=== PATIENT | male | born 1945 | race Caucasian/White ===

== ENCOUNTER → 2016-09-24 | Outpatient (CLI) | payer OTHER ==
[~2016-09-24] MED LIST: ACET-1256 PO; ALPR-411 PO; AMT25 PO; ATOR10TA88 PO; BIMA0.01 OPB; BISA10SU38 PR; CLIN300C10 PO; GLC/500 PO; IBUP1CAP9 PO; LEVO75TA PO; NIFE90TA PO; OXYC-57 PO; POLY335025 PO; POTA10CA28 PO; PRLSR20 PO
[2016-09-24 12:27] LABS: THYROID STIMULATING HORMONE 0.59 uIu/ml (0.300-4.500)
== END | disposition home or self-care (01) ==
LOC: C.LAB1850 11:11
PROVIDERS: ATTEND Internal Medicine Endocrinology, Diabetes & Metabolism
DX: E06.3 Autoimmune thyroiditis (principal)

== ENCOUNTER 2017-11-08 18:26 | Emergency (ER) | payer OTHER ==
[~2017-11-08] VITALS: Ht 180.3 cm; Wt 75.0 kg
[~2017-11-08 18:26] MED LIST changes: +ATOR10TA82 PO; -ATOR10TA88 PO; -OXYC-57 PO
[2017-11-08 18:28] VITALS: BP 188/84; PULSE 101; TEMP 36.3; O2SAT 99; Ht 180.3 cm; Wt 75.0 kg
--- NOTE | 2017-11-08 19:35 | EMERGENCY ROOM VISIT NOTE ---
ED Visit Note First contact with patient: 18:50 I did evaluate and examine this patient myself. I did guide management for the patient. I agree with the PA's assessment as discussed. Please see the PAs dictation for further details. The patient has been on 2 courses of 10 days of doxycycline. He is presenting because he feels his eustachian tubes are blocked and he has sinus drainage and wished to be placed on doxycycline. He had asked his primary care physician who did not feel it was indicated. He does have an appointment in 3 days to see his ENT doctor. I did recommend that we hold off on antibiotics at this time as there is no signs of bacterial infection on examination. He was advised to take [id number] decongestants to help with his symptoms in the meantime.
--- NOTE | 2017-11-08 19:37 | EMERGENCY ROOM VISIT NOTE ---
ED Visit Note First contact with patient: 18:50 CHIEF COMPLAINT: Ears blocked shut x one week HPI: Patient is a 72-year-old male who presents the emergency department requesting a doxycycline prescription for a suspected sinus infection. The patient has chronic sinus issues and has undergone multiple ENT surgeries. He states that he gets frequent sinus infections. He finished a course of doxycycline on 10/29. He reports that he had been seen by his ENT surgeon 2 days prior to that and had his ears cleaned, and was told that his "sinuses were clear." 2 days after finishing the antibiotic, patient states that he had a harsh coughing fits, and his ears have been clogged since. He notes pressure and muffled hearing in his ears. He notes some soreness down into the lymph nodes in his neck. He states that he gets hoarse. He has not had any fevers. He has been taking Mucinex. He states that nasal steroids do not work for him. He was on oral steroids about 4 months ago. He states that he had a CT scan from his ENT surgeon 6 months ago which showed his sinuses were clear. He tried calling his primary care provider who did not want to place him on an additional course of antibiotics, and there was a scheduling issue with his ENT surgeon, he is now supposed to see him in a few days. REVIEW OF SYSTEMS: Review of systems as per HPI. All other systems reviewed were negative. 10 systems reviewed. PMH: Electronic medical records are reviewed and summarized as above/below. See Problem List. SOCIAL HISTORY: Patient lives at home by himself. Non-smoker. He is retired. PHYSICAL EXAM: Vital Signs: Reviewed Nurse's notes. MENTAL STATUS: Alert and cooperative. Nontoxic appearing. HEAD: Atraumatic, without temporal or scalp tenderness. EYES: PERRL, EOMI, no discharge or injection. EARS: Tympanic membranes intact, mildly retracted, with clear fluid and some air -fluid levels inferiorly. External canals clear. There is no pain, swelling or erythema over the mastoid. NOSE: Nares patent, turbinates edematous and boggy with clear rhinorrhea. MOUTH: Mucous membranes moist, no lesions, tongue and gums appear normal. THROAT: No pharyngeal injection, exudates, or tonsillar hypertrophy. Airway is patent. NECK: No carotid bruits auscultated. Supple, nontender, no lymphadenopathy. HEART: Regular rate and rhythm without murmurs, ectopy, gallops, or rubs. LUNGS: Clear to auscultation and breath sounds equal, no wheezes, rales, or rhonchi. SKIN: Normal. NEUROLOGICAL: Sensory and motor functions grossly intact. Normal gait. ED course: The patient was seen and assessed as above. He recently completed a course of doxycycline for a sinus infection. He has evidence for serous otitis media with effusion, but no evidence for acute otitis media. I do not suspect mastoiditis. I do not feel that a course of doxycycline is indicated as there does not appear to be a bacterial infectious cause. Patient certainly has an eustachian tube dysfunction, and is not presently taking a decongestant which was advised. He can also try a nasal steroid spray for decreased inflammation. Patient was seen and assessed by attending physician who concurs. The patient will follow up with ENT as he has scheduled. Medication reconciliation: I attest that I have personally reviewed the patient' s current medication list. Blood pressure screening: Patient was found to have a slightly elevated blood pressure due to circumstances. I do not believe that the patient requires hypertension monitoring. 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 (4) Benign essential hypertension Status: Chronic (5) Chronic sinusitis Status: Chronic (6) Diplopia Status: Resolved (7) Diplopia Status: Resolved (8) Diplopia Status: Resolved (9) Dyslipidemia Status: Chronic (10) Hypokalemia Status: Resolved (11) Left bundle branch block Status: Resolved (12) Parotid tumor Status: Resolved (13) Rosacea Status: Chronic Surgical Problems: (1) Deviated nasal septum Status: Chronic (2) History of sinus surgery Status: Resolved (3) Replacement of total knee joint Status: Resolved Current/Historical Medications Scheduled Alprazolam (Xanax), 0.5 MG PO QAM Amitriptyline Hcl (Elavil *), 25 MG PO HS Atorvastatin (Lipitor), 10 MG PO AFTERNOON Bimatoprost (Lumigan), 1 FROILAN OPB HS Clindamycin Hcl (Clindamycin Hcl), 300 MG PO QID Levothyroxine Sodium (Synthroid), 75 MCG PO QAM Metformin Hcl (Glucophage), 500 MG PO BID Nifedipine (Procardia Xl), 90 MG PO QAM Omeprazole (Prilosec), 20 MG PO QAM Potassium Chloride (Micro-K Ext Rel), 10 MEQ PO BID Scheduled PRN Acetaminophen (Tylenol), 500 MG PO BID PRN for Pain Bisacodyl (Dulcolax), 1 SUPP MN QAM PRN for Constipation Ibuprofen (Ibuprofen), 1 TAB PO QAM PRN for Pain Polyethylene Glycol 3350 (Miralax), 17 GM PO Q2D PRN for CONSTIPATION Allergies Coded Allergies: Dust (Verified Allergy, Intermediate, NASAL BURNING, LEFT EYE IRRITATION, 06/18/16) Molds and Smuts (Verified Allergy, Intermediate, NASAL BURNING, LEFT EYE IRRITATION, 06/18/16) Penicillins (Verified Allergy, Intermediate, HIVES ON BODY, 06/18/16) Levofloxacin (Unverified Allergy, Mild, UNKNOWN, 06/18/16) Vancomycin (Verified Allergy, Unknown, UNKNOWN, 06/04/16) Vital Signs Date Time Temp Pulse Resp B/P (MAP) Pulse Ox O2 Delivery O2 Flow Rate FiO2 11/08/17 18:28 36.3 101 18 188/84 99 Departure Information Impression Primary Impression: Serous otitis media Additional Impression: Eustachian tube dysfunction Referrals Jean Marie Inman D.OZully (PCP) Patient Instructions [facility] Additional Instructions Acetaminophen(Tylenol) may be used for fever or pain. Use 1000mg every six hours as needed. Avoid using more than 3000mg in a 24 hour period. (AND/OR) Ibuprofen(Motrin, Advil) may be used for fever or pain. Use 600mg every six hours as needed. Take with food. Avoid using more than 2400mg in a 24 hour period. Do not use 2400mg per day for more than three consecutive days without physician direction. Prolonged inappropriate use can lead to stomach upset or ulcers. Afrin nasal spray: 2-3 sprays to each nostril twice daily as needed for congestion. Do not use for more than 3-4 days because it can lead to worsening rebound congestion. Nasal steroid spray per package instructions. Pseudoephedrine(Sudafed): 30-60mg every 6 hours as needed for congestion. Do not take this with other stimulant products or supplements. Guaifenesin (Mucinex) : Take 1200 mg every 12 hours as needed for nasal/chest congestion, to help thin secretions. Continue current medications. Follow up with ENT as scheduled. Problem Qualifiers Primary Impression: Serous otitis media Laterality: bilateral Additional Impression: Eustachian tube dysfunction Laterality: bilateral Qualified Codes: H69.83 - Other specified disorders of eustachian tube, bilateral
== END 2017-11-08 19:44 | disposition home or self-care (01) ==
LOC: C.EDB 18:28 → C.EDD 19:44
DX: H65.00 Acute serous otitis media, unspecified ear (principal); H69.83 Other specified disorders of Eustachian tube, bilateral; C44.91 Basal cell carcinoma of skin, unspecified; I10 Essential (primary) hypertension; J32.9 Chronic sinusitis, unspecified; E78.5 Hyperlipidemia, unspecified; Z88.0 Allergy status to penicillin

== ENCOUNTER 2018-08-19 11:44 | Inpatient (IN) ==
[2018-08-19 12:18] LABS: Basophils # (auto) 0.06 K/uL (0-0.2); Basophils % (auto) 0.5 %; Eosinophils # (auto) 0.13 K/uL (0-0.5); Eosinophils % (auto) 1.2 %; Hematocrit (blood only) 41.2 % (42-52); Hemoglobin 13.9 g/dL (14.0-18.0); Immature Granulocytes # (auto) 0.04 K/uL (0.00-0.02); Immature Granulocytes % (auto) 0.4 %; Lymphocytes # (auto) 2.74 K/uL (1.2-3.4); Mean Corpuscular Hgb Conc 33.7 g/dL (32-36); Mean Platelet Volume 11.1 fL (7.4-10.4); Monocytes # (auto) 0.98 K/uL (0.11-0.59); Monocytes % (auto) 8.9 %; Platelet Count 312 K/uL (130-400); RDW Coefficient of Variation 14.4 % (11.5-14.5); RDW Standard Deviation 46.1 fL (36.4-46.3); Red Blood Count 4.68 M/uL (4.7-6.1); White Blood Count 10.95 K/uL (4.8-10.8)
[2018-08-19 12:22] LABS: iSTAT Hemoglobin 13.9 g/dl (14.0-18.0); iSTAT Ionized Calcium 1.15 mmol/l (1.12-1.32)
[2018-08-19 12:30] LABS: Prothrombin Time 10.4 Seconds (9.0-12.0)
[2018-08-19 12:35] LABS: Albumin Level 3.6 gm/dl (3.4-5.0); BUN Creatinine Ratio 15.6 (10-20); Calcium 8.9 mg/dl (8.5-10.1); Creatinine Clr Calc Pharmacy 42.6 ml/min; Est GFR (African American) 47.7; Est GFR (Non-African American) 41.2; Potassium 3.9 mmol/L (3.5-5.1)
[2018-08-19 12:40] LABS: Bilirubin,Total 0.5 mg/dl (0.2-1); Globulin 3.7 gm/dl (2.5-4.0); Total Protein 7.3 gm/dl (6.4-8.2); Troponin I 0.022 ng/ml (0-0.045)
--- NOTE | 2018-08-19 12:55 | XRay Report ---
XR chest 1V portable CLINICAL HISTORY: Chest pain. Shortness of breath. COMPARISON STUDY: History of August 05, 2013. FINDINGS: Lung volumes are normal. There is mild elevation/eventration of the right hemidiaphragm whi ch is unchanged. There is no pneumothorax or pleural effusion. There is no consolidation to suggest p neumonia. Note is made of moderate cardiomegaly. IMPRESSION: 1. No acute cardiopulmonary findings. 2. Moderate cardiomegaly. Electronically signed by: Rg Cedeno M.D. 08/19/2018 12:54 PM
--- NOTE | 2018-08-19 13:23 | Emergency Department Note ---
Entered by Genna Reilly acting as a scribe for Mitchel Subramanian DO History of Present Illness General Chief complaint: Chest Pain Source: patient History of Present Illness Onset (ago): month(s) 1 Location: chest Pain Consistency: + other (worsening) Quality: + other (SOB) Exacerbated By: + other (exertion) Associated symptoms: + other (The patient complains of swelling in the lower extremities and weakness in his upper extremities.) The patient is a 73 year old male who presents to the Emergency Room with complaints of worsening SOB that began about a month ago. He notes that he saw his PCP last week, but states that nothing was abnormal. The patient complains of swelling in the lower extremities and weakness in his upper extremities. He reports that the SOB worsens with exertion. The patient reports that he has implants in his sinuses that are cleared every 2 weeks. Home Medications Home Medications Medication Instructions Recorded Confirmed Type Amitriptyline Hcl (Elavil *) 25 mg PO HS #0 08/21/10 History ATORVASTATIN (LIPITOR) 10 mg PO AFTERNOON #0 tab 10/19/13 History Acetaminophen (Tylenol) 500 mg PO BID PRN #0 tab 10/19/13 History Alprazolam (Xanax) 0.5 mg PO QAM #0 tab 10/19/13 History NIFEDIPINE (PROCARDIA XL) 90 mg PO QAM #0 tab 10/19/13 History POLYETHYLENE GLYCOL 3350 (MIRALAX) 17 g PO Q2D PRN #0 10/19/13 History BIMATOPROST (LUMIGAN) 1 arturo OPB HS #0 11/03/13 History BISACODYL (DULCOLAX) 1 supp VA QAM PRN #0 sup 06/04/16 History IBUPROFEN 1 tab PO QAM PRN #0 06/04/16 History LEVOTHYROXINE SODIUM (SYNTHROID) 75 mcg PO QAM #0 tab 06/04/16 History METFORMIN HCL (GLUCOPHAGE) 500 mg PO BID #0 tab 06/04/16 History OMEPRAZOLE (PRILOSEC) 20 mg PO QAM #0 cap 06/04/16 History Potassium Chloride (Micro-K Ext 10 meq PO BID #0 cap 06/04/16 History Rel) CLINDAMYCIN HCL 300 mg PO QID #28 06/18/16 Rx Allergies Allergy/AdvReac Type Severity Reaction Status Date / Time mold Allergy Intermediate NASAL Verified 06/18/16 07:12 BURNING, LEFT EYE IRRITATION Penicillins Allergy Intermediate HIVES ON Verified 06/18/16 07:12 BODY levofloxacin Allergy Mild UNKNOWN Unverified 06/18/16 07:12 vancomycin Allergy Unknown UNKNOWN Verified 06/04/16 08:57 Dust Allergy Intermediate NASAL Uncoded 06/18/16 07:12 BURNING, LEFT EYE IRRITATION Past Med/Surg History Medical History Left bundle branch block (Resolved) Diplopia (Resolved) Hypokalemia (Resolved) Adverse reaction to drug (Resolved) Family History Other Family history non-contributory Social History Feels Safe at Home: Yes Smoking Status: Never smoker Review of Systems See HPI for pertinent positives & negatives. and A total of 10 systems reviewed and were otherwise negative Physical Exam Vital Signs Vital Signs - 24 hr 08/19/18 11:48 08/19/18 11:59 08/19/18 12:00 Temperature 36.4 C L Temperature Source Oral Sepsis Recent Fever Within 48 Hours No Sepsis New/Unexplained Change in Mental Status No Sepsis Action Taken by Nursing No Action Required Pulse Rate 84 104 H 0 L Pulse Rate [Finger] Respiratory Rate 26 H 25 H 10 L Respiratory Effort / Characteristics Non-Labored Spontaneous Respiratory Depth Normal Blood Pressure 191/64 H 191/64 H Blood Pressure [Right Arm] Blood Pressure Mean 106 106 Blood Pressure Mean [Right Arm] Pulse Oximetry 98 98 97 Oxygen Delivery Method Room Air 08/19/18 12:10 08/19/18 12:20 08/19/18 12:30 Temperature Temperature Source Sepsis Recent Fever Within 48 Hours Sepsis New/Unexplained Change in Mental Status Sepsis Action Taken by Nursing Pulse Rate 35 L 32 L 39 L Pulse Rate [Finger] Respiratory Rate 18 17 16 Respiratory Effort / Characteristics Respiratory Depth Blood Pressure Blood Pressure [Right Arm] Blood Pressure Mean Blood Pressure Mean [Right Arm] Pulse Oximetry 97 97 97 Oxygen Delivery Method 08/19/18 12:40 08/19/18 12:44 08/19/18 12:50 Temperature Temperature Source Sepsis Recent Fever Within 48 Hours Sepsis New/Unexplained Change in Mental Status Sepsis Action Taken by Nursing Pulse Rate 42 L 34 L Pulse Rate [Finger] 40 L Respiratory Rate 12 17 15 Respiratory Effort / Characteristics Respiratory Depth Blood Pressure Blood Pressure [Right Arm] 191/64 H Blood Pressure Mean Blood Pressure Mean [Right Arm] 106 Pulse Oximetry 97 99 97 Oxygen Delivery Method Room Air 08/19/18 13:00 08/19/18 13:10 Temperature Temperature Source Sepsis Recent Fever Within 48 Hours Sepsis New/Unexplained Change in Mental Status Sepsis Action Taken by Nursing Pulse Rate 38 L 63 Pulse Rate [Finger] Respiratory Rate 12 23 Respiratory Effort / Characteristics Respiratory Depth Blood Pressure Blood Pressure [Right Arm] Blood Pressure Mean Blood Pressure Mean [Right Arm] Pulse Oximetry 96 97 Oxygen Delivery Method CONSTITUTIONAL/VITAL SIGNS: Reviewed / noted above. GENERAL: Non-toxic in appearance. INTEGUMENTARY: Warm, dry, and [place]. HEAD: Normocephalic. EYES: without scleral icterus or trauma. ENT/OROPHARYNX: clear and moist. LYMPHADENOPATHY/NECK: Is supple without lymphadenopathy or meningismus. RESPIRATORY: Lungs clear and equal. CARDIOVASCULAR: Bradycardic rate and regular rhythm. GI/ABDOMEN: Soft and nontender. No organomegaly or pulsatile mass. No rebound or guarding. Normal bowel sounds. EXTREMITIES: Warm and well perfused. BACK: No CVA tenderness. NEUROLOGICAL: Intact without focal deficits. PSYCHIATRIC: normal affect. MUSCULOSKELETAL: Normally developed with good muscle tone. Course 1149: Past medical records reviewed. The patient was evaluated in room C01, and a complete history and physical examination were performed. 1205: I spoke with Dr. Chon Cerna, [facility] cardiology, about the patients case. 1217: I spoke with Radha Ramos Lieutenant Colonel, about the patient's case. He will evaluate the patient further. Consultations Consultation #1: I spoke with Dr. Chon Cerna, [facility] cardiology, about the patients case. Time: 12:05 Consultation #2: I spoke with Radha Ramos Lieutenant Colonel, about the patient's case. He will evaluate the patient further. Time: 12:17 Medical Decision Making Differential Diagnosis The differential was considered includes acute myocardial infarction, acute coronary syndrome, myocarditis, pericarditis, pericardial effusions /tamponad, esophageal perforation, thoracic aortic dissection, pulmonary embolism, pneumonia, pneumothorax, pancreatitis, shingles, acute cholecystitis, perforated abdominal viscus. Medical Records Attestation: I reviewed the patient's medical records. Home Medications Current Medication List: was personally reviewed by me Laboratory Data Attestation: I reviewed the patient's lab results. Result diagrams: 08/19/18 11:50 08/19/18 11:50 Lab Results 08/19/18 08/19/18 08/19/18 Range/Units 11:50 11:50 11:50 WBC 10.95 H (4.8-10.8) K/uL RBC 4.68 L (4.7-6.1) M/uL Hgb 13.9 L (14.0-18.0) g/dL POC Hgb (14.0-18.0) g/dl Hct 41.2 L (42-52) % POC Hct (42-52) % MCV 88.0 (80-100) fL MCH 29.7 (25-34) pg MCHC 33.7 (32-36) g/dL RDW Std Deviation 46.1 (36.4-46.3) fL RDW Coeff of Wilmer 14.4 (11.5-14.5) % Plt Count 312 (130-400) K/uL MPV 11.1 H (7.4-10.4) fL Immature Gran % (Auto) 0.4 % Neut % (Auto) 64.0 % Lymph % (Auto) 25.0 % Union % (Auto) 8.9 % Eos % (Auto) 1.2 % Baso % (Auto) 0.5 % Immature Gran # (Auto) 0.04 H (0.00-0.02) K/uL Neut # (Auto) 7.00 H (1.4-6.5) K/uL Lymph # (Auto) 2.74 (1.2-3.4) K/uL Union # (Auto) 0.98 H (0.11-0.59) K/uL Eos # (Auto) 0.13 (0-0.5) K/uL Baso # (Auto) 0.06 (0-0.2) K/uL PT 10.4 (9.0-12.0) Seconds INR 1.0 (0.9-1.1) POC Sodium (135-144) mEq/L Sodium 142 (136-145) mmol/L POC Potassium (3.3-5.0) mEq/L Potassium 3.9 (3.5-5.1) mmol/L POC Chloride (101-112) mEq/L Chloride 112 H (98-107) mmol/L Carbon Dioxide 20 L (21-32) mmol/L POC Total CO2 (24-31) mEq/l Anion Gap 10.0 (3-11) POC Anion Gap (16-25) mmol/L POC BUN (7-18) mg/dl BUN 25 H (7-18) mg/dl Creatinine 1.62 H (0.6-1.4) mg/dl POC Creatinine (0.6-1.3) mg/dl Est Cr Clr Drug Dosing 42.6 ml/min Est GFR ( Amer) 47.7 Est GFR (Non-Af Amer) 41.2 BUN/Creatinine Ratio 15.6 (10-20) Glucose 189 H (70-99) mg/dl POC Glucose (other) (70-99) mg/dl Calcium 8.9 (8.5-10.1) mg/dl POC Ioniz Calcium Jf (1.12-1.32) mmol/l Total Bilirubin 0.5 (0.2-1) mg/dl AST 15 (15-37) U/L ALT 32 (12-78) U/L Alkaline Phosphatase 169 H (45-117) U/L Troponin I 0.022 (0-0.045) ng/ml Total Protein 7.3 (6.4-8.2) gm/dl Albumin 3.6 (3.4-5.0) gm/dl Globulin 3.7 (2.5-4.0) gm/dl Albumin/Globulin Ratio 1.0 (0.9-2) 08/19/18 Range/Units 12:09 WBC (4.8-10.8) K/uL RBC (4.7-6.1) M/uL Hgb (14.0-18.0) g/dL POC Hgb 13.9 L (14.0-18.0) g/dl Hct (42-52) % POC Hct 41 L (42-52) % MCV (80-100) fL MCH (25-34) pg MCHC (32-36) g/dL RDW Std Deviation (36.4-46.3) fL RDW Coeff of Wilmer (11.5-14.5) % Plt Count (130-400) K/uL MPV (7.4-10.4) fL Immature Gran % (Auto) % Neut % (Auto) % Lymph % (Auto) % Union % (Auto) % Eos % (Auto) % Baso % (Auto) % Immature Gran # (Auto) (0.00-0.02) K/uL Neut # (Auto) (1.4-6.5) K/uL Lymph # (Auto) (1.2-3.4) K/uL Union # (Auto) (0.11-0.59) K/uL Eos # (Auto) (0-0.5) K/uL Baso # (Auto) (0-0.2) K/uL PT (9.0-12.0) Seconds INR (0.9-1.1) POC Sodium 144 (135-144) mEq/L Sodium (136-145) mmol/L POC Potassium 3.6 (3.3-5.0) mEq/L Potassium (3.5-5.1) mmol/L POC Chloride 111 (101-112) mEq/L Chloride (98-107) mmol/L Carbon Dioxide (21-32) mmol/L POC Total CO2 20 L (24-31) mEq/l Anion Gap (3-11) POC Anion Gap 18.0 (16-25) mmol/L POC BUN 23 H (7-18) mg/dl BUN (7-18) mg/dl Creatinine (0.6-1.4) mg/dl POC Creatinine 1.5 H (0.6-1.3) mg/dl Est Cr Clr Drug Dosing ml/min Est GFR ( Amer) Est GFR (Non-Af Amer) BUN/Creatinine Ratio (10-20) Glucose (70-99) mg/dl POC Glucose (other) 191 H (70-99) mg/dl Calcium (8.5-10.1) mg/dl POC Ioniz Calcium Jf 1.15 (1.12-1.32) mmol/l Total Bilirubin (0.2-1) mg/dl AST (15-37) U/L ALT (12-78) U/L Alkaline Phosphatase (45-117) U/L Troponin I (0-0.045) ng/ml Total Protein (6.4-8.2) gm/dl Albumin (3.4-5.0) gm/dl Globulin (2.5-4.0) gm/dl Albumin/Globulin Ratio (0.9-2) Imaging Data Radiologist's Impression: Radiology results as stated below per my review and the radiologist's interpretation: XR chest 1V portable CLINICAL HISTORY: Chest pain. Shortness of breath. COMPARISON STUDY: History of August 05, 2013. FINDINGS: Lung volumes are normal. There is mild elevation/eventration of the right hemidiaphragm which is unchanged. There is no pneumothorax or pleural effusion. There is no consolidation to suggest pneumonia. Note is made of moderate cardiomegaly. IMPRESSION: 1. No acute cardiopulmonary findings. 2. Moderate cardiomegaly. Electronically signed by: Rg Cedeno M.D. 08/19/2018 12:54 PM ECG Data Attestation: I personally reviewed and interpreted this ECG as follows: Indication: SOB/dyspnea Rate (beats per minute): 34 Rhythm: sinus rhythm Findings: + other (third degree heart block); no ST elevation and no ectopy Blood Pressure Blood Pressure Findings: Elevated blood pressure Blood Pressure Disposition: further management by hospitalist MDM Narrative This is a 73-year-old male who presents to the ED with a chief complaint of weakness and exertional dyspnea. The patient has been developing the symptoms with progressive worsening over the past several weeks. He also reports that he has been having pedal edema. The patient crawled under his house to change a filter and states that he did not think that he was going to make it out because he was so short of breath due to the exertion. He was picked up by EMS and found to be in 1/3 degree heart block. He was transported here for evaluation. EKG does show a third-degree heart block. His rate is in the 30s. His blood pressure was elevated. CBC is unremarkable. The BUN and creatinine are slightly elevated. Glucose is 189. Troponin was negative. Chest x-ray did not show acute disease. The patient was monitored in the emergency department and had no changes. I spoke with Dr. Cerna as well as the hospitalist, who will see the patient for admission and pacemaker placement. Impression & Plan Third degree heart block Discharge Plan Visit Data Chief Complaint: Chest Pain Other Complaint: Edema To Extremity Shortness of Breath/Dyspnea ED Provider: Mitchel Subramanian Discharge Problem: Third degree heart block Patient Disposition: Being Evaluated by Hospitalist Condition: Good Forms Stand Alone Forms: Call Back Authorization, My [facility] Prescriptions Prescriptions: No Action Amitriptyline Hcl (Elavil *) 25 MG tablet 25 mg PO HS Qty: 0 RF: 0 ATORVASTATIN (LIPITOR) 10 MG tablet 10 mg PO AFTERNOON Qty: 0 RF: 0 Acetaminophen (Tylenol) 500 MG tablet 500 mg PO BID PRN (Reason: Pain) Qty: 0 RF: 0 Alprazolam (Xanax) 0.5 MG tablet 0.5 mg PO QAM Qty: 0 RF: 0 NIFEDIPINE (PROCARDIA XL) 90 MG tablet 90 mg PO QAM Qty: 0 RF: 0 POLYETHYLENE GLYCOL 3350 (MIRALAX) 1 POW POW 17 g PO Q2D PRN (Reason: CONSTIPATION) Qty: 0 RF: 0 BIMATOPROST (LUMIGAN) 0.01 % SOLTAB 1 arturo OPB HS Qty: 0 RF: 0 BISACODYL (DULCOLAX) 10 MG SUP 1 supp VA QAM PRN (Reason: Constipation) Qty: 0 RF: 0 IBUPROFEN 200 MG capsule 1 tab PO QAM PRN (Reason: Pain) Qty: 0 RF: 0 LEVOTHYROXINE SODIUM (SYNTHROID) 75 MCG tablet 75 mcg PO QAM Qty: 0 RF: 0 METFORMIN HCL (GLUCOPHAGE) 500 MG tablet 500 mg PO BID Qty: 0 RF: 0 OMEPRAZOLE (PRILOSEC) 20 MG CONTR REL CAP 20 mg PO QAM Qty: 0 RF: 0 Potassium Chloride (Micro-K Ext Rel) 10 MEQ CONTR REL CAP 10 meq PO BID Qty: 0 RF: 0 CLINDAMYCIN HCL 300 MG capsule 300 mg PO QID Qty: 28 RF: 0 Referrals Referrals: PCP,NO [Physician] - The scribe's documentation has been prepared under my direction and personally reviewed by me in its entirety. I confirm that the note above accurately reflects all work, treatment, procedures, and medical decision making performed by me.
--- NOTE | 2018-08-19 14:12 | Cardiology Consultation ---
Date of Consultation August 19, 2018 Assessment & Plan (1) Third degree heart block: Patient has a history of chronic conduction system disease with long- standing left bundle branch block presents now with at least one weeks history of exertional dyspnea fatigue and mild lower extremity edema. EKG on presentation demonstrates sinus rhythm with third-degree AV block and ventricular escape rhythm rate 35. He does not appear hemodynamically compromised blood pressures are mildly elevated (would not treat) and renal function appears stable Will refer for permanent pacemaker insertion Echocardiogram ordered in the interim External pacer pads placed with patient to be admitted to the intensive care unit to follow pending permanent pacemaker insertion in a.m. (2) Left bundle branch block: History of Present Illness Reason for Consultation: Third-degree heart block, chronic left bundle branch block Requesting Physician: Dr. Salazar Attending Physician: Roque Salazar MD History of Present Illness Patient is a 73-year-old male with known history of long-standing left bundle branch block, history of hypothyroidism, hyperlipidemia, hypertension on therapy. History of chronic sinus disease. Patient presents this admission noting symptoms of exertional dyspnea and marked fatigue of at least 1 weeks duration becoming breathless with minimal activity. He notes no overt syncope near syncope notes no fevers chills or productive cough has had worsening lower extremity edema notes no rash arthritic complaint notes no tick exposure notes no headache or visual changes is been physically active about despite above complaints. Was aware of lower extremity edema worsening and contacted primary care physician's office today who recommended ER evaluation due to symptoms. He takes medications as prescribed Allergies Allergy/AdvReac Type Severity Reaction Status Date / Time mold Allergy Intermediate NASAL Verified 06/18/16 07:12 BURNING, LEFT EYE IRRITATION Penicillins Allergy Intermediate HIVES ON Verified 06/18/16 07:12 BODY levofloxacin Allergy Mild UNKNOWN Unverified 06/18/16 07:12 vancomycin Allergy Unknown UNKNOWN Verified 06/04/16 08:57 Dust Allergy Intermediate NASAL Uncoded 06/18/16 07:12 BURNING, LEFT EYE IRRITATION Home Medications Home Medications Medication Instructions Recorded Confirmed Type Amitriptyline Hcl (Elavil *) 25 mg PO HS #0 08/21/10 History ATORVASTATIN (LIPITOR) 10 mg PO AFTERNOON #0 tab 10/19/13 History Acetaminophen (Tylenol) 500 mg PO BID PRN #0 tab 10/19/13 History Alprazolam (Xanax) 0.5 mg PO QAM #0 tab 10/19/13 History NIFEDIPINE (PROCARDIA XL) 90 mg PO QAM #0 tab 10/19/13 History POLYETHYLENE GLYCOL 3350 (MIRALAX) 17 g PO Q2D PRN #0 10/19/13 History BIMATOPROST (LUMIGAN) 1 arturo OPB HS #0 11/03/13 History BISACODYL (DULCOLAX) 1 supp [place] QAM PRN #0 sup 06/04/16 History IBUPROFEN 1 tab PO QAM PRN #0 06/04/16 History LEVOTHYROXINE SODIUM (SYNTHROID) 75 mcg PO QAM #0 tab 06/04/16 History METFORMIN HCL (GLUCOPHAGE) 500 mg PO BID #0 tab 06/04/16 History OMEPRAZOLE (PRILOSEC) 20 mg PO QAM #0 cap 06/04/16 History Potassium Chloride (Micro-K Ext 10 meq PO BID #0 cap 06/04/16 History Rel) CLINDAMYCIN HCL 300 mg PO QID #28 06/18/16 Rx Patient History Medical History Left bundle branch block (Resolved) Diplopia (Resolved) Hypokalemia (Resolved) Adverse reaction to drug (Resolved) Family History Other Family history non-contributory Social History Feels Safe at Home: Yes Smoking Status: Never smoker Review of Systems As per HPI otherwise negative Physical Exam 2 Vital Signs (Past 24 Hours): Last Vital Signs Temp 36.4 C L 08/19/18 11:48 Pulse 41 L 08/19/18 13:43 Resp 17 08/19/18 13:43 BP 182/66 H 08/19/18 13:43 Pulse Ox 94 08/19/18 13:43 Constitutional: WD/WN, vitals as above no acute distress Eyes: PERRL, conjunctivae normal, anicteric sclerae ENMT: external ear and nose normal, oropharynx normal Neck: trachea midline, no thyromegaly + thick neck Respiratory: normal respiratory effort, lungs clear to auscultation Cardiovascular: Rate/Rhythm: + bradycardic Heart Sounds: no gallop Extremities: + edema (1-2+ peripheral edema is present) Gastrointestinal (Abdomen): normal bowel sounds, soft, nontender, no hepatosplenomegaly Skin: Warm and dry without rash Results & Data Laboratory Results Laboratory Results - last 24 hr 08/19/18 08/19/18 08/19/18 11:50 11:50 11:50 WBC 10.95 H RBC 4.68 L Hgb 13.9 L POC Hgb Hct 41.2 L POC Hct MCV 88.0 MCH 29.7 MCHC 33.7 RDW Std Deviation 46.1 RDW Coeff of Wilmer 14.4 Plt Count 312 MPV 11.1 H Immature Gran % (Auto) 0.4 Neut % (Auto) 64.0 Lymph % (Auto) 25.0 Churchill % (Auto) 8.9 Eos % (Auto) 1.2 Baso % (Auto) 0.5 Immature Gran # (Auto) 0.04 H Neut # (Auto) 7.00 H Lymph # (Auto) 2.74 Churchill # (Auto) 0.98 H Eos # (Auto) 0.13 Baso # (Auto) 0.06 PT 10.4 INR 1.0 POC Sodium Sodium 142 POC Potassium Potassium 3.9 POC Chloride Chloride 112 H Carbon Dioxide 20 L POC Total CO2 Anion Gap 10.0 POC Anion Gap POC BUN BUN 25 H Creatinine 1.62 H POC Creatinine Est Cr Clr Drug Dosing 42.6 Est GFR ( Amer) 47.7 Est GFR (Non-Af Amer) 41.2 BUN/Creatinine Ratio 15.6 Glucose 189 H POC Glucose (other) Calcium 8.9 POC Ioniz Calcium Jf Total Bilirubin 0.5 AST 15 ALT 32 Alkaline Phosphatase 169 H Troponin I 0.022 Total Protein 7.3 Albumin 3.6 Globulin 3.7 Albumin/Globulin Ratio 1.0 08/19/18 12:09 WBC RBC Hgb POC Hgb 13.9 L Hct POC Hct 41 L MCV MCH MCHC RDW Std Deviation RDW Coeff of Wilmer Plt Count MPV Immature Gran % (Auto) Neut % (Auto) Lymph % (Auto) Churchill % (Auto) Eos % (Auto) Baso % (Auto) Immature Gran # (Auto) Neut # (Auto) Lymph # (Auto) Churchill # (Auto) Eos # (Auto) Baso # (Auto) PT INR POC Sodium 144 Sodium POC Potassium 3.6 Potassium POC Chloride 111 Chloride Carbon Dioxide POC Total CO2 20 L Anion Gap POC Anion Gap 18.0 POC BUN 23 H BUN Creatinine POC Creatinine 1.5 H Est Cr Clr Drug Dosing Est GFR ( Amer) Est GFR (Non-Af Amer) BUN/Creatinine Ratio Glucose POC Glucose (other) 191 H Calcium POC Ioniz Calcium Jf 1.15 Total Bilirubin AST ALT Alkaline Phosphatase Troponin I Total Protein Albumin Globulin Albumin/Globulin Ratio ECG Additional Comments: EKG: Sinus rhythm with third-degree AV block with ventricular escape rhythm
[2018-08-19] MEDS ORDERED: ICU PROTOCOL FOR HYPERGLYCEMIA PRN (14:41)
--- NOTE | 2018-08-19 15:03 | History & Physical Report ---
Date of Service August 19, 2018 Assessment & Plan (1) Third degree heart block: This is a 73-year-old male with a PMH of HTN, HLD, DM II, hypothyroidism and other medical problems listed below who presents with progressively worsening shortness of breath x 1 month and was found to have third degree heart block. -Initial EKG with third-degree heart block at 34 bpm -Hemodynamically stable with mildly elevated BP of 180s/60 at but will not treat at this time -CXR without acute cardiopulmonary abnormalities. Initial troponin is negative -Discussed with Dr. Cerna and Dr. Myers -Will monitor in ICU overnight with plan for permanent pacemaker insertion tomorrow (Dr. Bose consulted) * External pacer pads placed with patient * Echocardiogram ordered (2) Hypertension: Elevated BP but will allow in setting of 3rd degree heart block -Hold Lasix and Procardia (3) Left bundle branch block: Chronic (4) Hypothyroidism: Continue levothyroxine (5) Anxiety: Xanax as needed (6) Hyperlipidemia: Continue statin DVT Ppx: Plan for pacemaker Code status: FULL per discussion with patient PCP: Henny Dispo: Admitted to ICU. Discharge planning ordered. Patient seen in collaboration with Dr. Salazar. Please see addendum. History of Present Illness Chief Complaint: Shortness of breath Primary Care Provider: Jean Marie Inman, DO This is a 73-year-old male with a PMH of HTN, HLD, DM II, hypothyroidism and other medical problems listed below who presents with progressively worsening shortness of breath x 1 month. Was seen in clinic by Dr. Inman last week and was started on Lasix 20 mg p.o. on Friday with some improvement. Has continued to experience dyspnea with exertion and was even short of breath on the phone today. Called PCP office and was advised to come to ED for further evaluation. Patient denies any lightheadedness, chest pain, palpitations, wheezing or syncope. No orthopnea or PND. Denies any sick contacts, fever or chills. Initial EKG with third-degree heart block at 34 bpm. ED provider called cardiology service, who recommended admission to ICU for close monitoring and pacemaker placement tomorrow. Allergies Allergy/AdvReac Type Severity Reaction Status Date / Time mold Allergy Intermediate NASAL Verified 06/18/16 07:12 BURNING, LEFT EYE IRRITATION Penicillins Allergy Intermediate HIVES ON Verified 06/18/16 07:12 BODY levofloxacin Allergy Mild UNKNOWN Unverified 06/18/16 07:12 vancomycin Allergy Unknown UNKNOWN Verified 06/04/16 08:57 Dust Allergy Intermediate NASAL Uncoded 06/18/16 07:12 BURNING, LEFT EYE IRRITATION Home Medications Home Medications Medication Instructions Recorded Confirmed Type alprazolam 0.5 mg PO BID PRN 08/19/18 08/19/18 History amitriptyline 25 mg PO HS 08/19/18 08/19/18 History atorvastatin 20 mg PO DAILY@1500 08/19/18 08/19/18 History bimatoprost 1 drp OPHTHALMIC (EYE) UD 08/19/18 08/19/18 History furosemide 20 mg PO MOWEFR 08/19/18 08/19/18 History levothyroxine 75 mcg PO DAILY 08/19/18 08/19/18 History nifedipine 90 mg PO DAILY 08/19/18 08/19/18 History omeprazole 20 mg PO DAILY 08/19/18 08/19/18 History polyethylene glycol 3350 17 g PO DAILY PRN 08/19/18 08/19/18 History potassium chloride 10 meq PO BIDM 08/19/18 08/19/18 History ranitidine HCl 75 mg PO DAILY 08/19/18 08/19/18 History timolol maleate [Timoptic] 1 drp OPHTHALMIC (EYE) HS 08/19/18 08/19/18 History lisinopril [Zestril] 10 mg PO QAM 30 Days #30 tab 08/22/18 Rx metformin 1,000 mg PO BID #30 tab 08/22/18 Rx Past Med/Surg History Medical History Chronic maxillary sinusitis (Chronic) Hypothyroidism (Chronic) Anxiety (Chronic) Hyperlipidemia (Chronic) Hypertension (Chronic) Left bundle branch block (Chronic) Surgical History History of sinus surgery (Resolved) History of appendectomy (Resolved) History of malignant neoplasm of colon (Resolved) s/p resection History of knee replacement (Resolved) H/O hernia repair (Resolved) Family History Father CAD (coronary artery disease) Social History Current Living Situation: Alone Other Information That Helps Us Care for You: No Feels Safe at Home: Yes Safety Concerns: Feels Safe At This Time Smoking Status: Never smoker Do You Dip or Chew Tobacco: No Second Hand Exposure: No Tobacco Cessation Education Requested by Patient: No Hx Alcohol Use: No Hx Substance Use: No Beliefs That Will Affect Care: None Preferred Language: Korean Review of Systems All systems reviewed & are unremarkable except as noted in HPI & below Physical Exam 2 Vital Signs (Past 24 Hours): Last Vital Signs Temp 36.6 C 08/19/18 14:09 Pulse 36 L 08/19/18 14:09 Resp 15 08/19/18 14:09 BP 184/63 H 08/19/18 14:09 Pulse Ox 98 08/19/18 14:09 Physical Exam: General Appearance: WD/WN, no apparent distress, resting comfortably Head: normocephalic, atraumatic Eyes: normal inspection, PERRL, EOMI ENT: hearing grossly normal, pharynx normal (moist mucous membranes) Neck: supple, no JVD, no adenopathy Respiratory/Chest: lungs clear to auscultation. No wheezes, rales or rhonci. No respiratory distress or accessory muscle use Cardiovascular: bradycardic rate, no murmur, normal peripheral pulses, 1-2+ BLE pitting edema to ankles Abdomen/GI: normal bowel sounds, soft, non-tender to palpation Extremities/Musculoskelatal: normal inspection, no calf tenderness, normal capillary refill, no pedal edema Neurologic/Psych: alert, normal mood/affect, oriented x 3 Skin: normal color, warm/dry Results & Data Laboratory Results Short CBC 08/19/18 Range/Units 11:50 WBC 10.95 H (4.8-10.8) K/uL Hgb 13.9 L (14.0-18.0) g/dL Hct 41.2 L (42-52) % Plt Count 312 (130-400) K/uL BMP 08/19/18 11:50 Sodium 142 Potassium 3.9 Chloride 112 H Carbon Dioxide 20 L BUN 25 H Creatinine 1.62 H Glucose 189 H Calcium 8.9 Cardiac Enzymes 08/19/18 Range/Units 11:50 Troponin I 0.022 (0-0.045) ng/ml Liver Function 08/19/18 Range/Units 11:50 Total Bilirubin 0.5 (0.2-1) mg/dl AST 15 (15-37) U/L ALT 32 (12-78) U/L Alkaline Phosphatase 169 H (45-117) U/L Albumin 3.6 (3.4-5.0) gm/dl Diagnostic Findings CXR: IMPRESSION: 1. No acute cardiopulmonary findings. 2. Moderate cardiomegaly. ECG Rhythm: normal sinus Findings: + complete heart block Code Status & VTE Plan Code Status FULL VTE Prophylaxis Plan VTE Prophylaxis will be ordered: Yes Supervising Physician Co-Signing Physician Notes Pt was seen and examined . Agreed with Delia BATISTA history, exam, assessment and plan. I reviewed the medications with the patient and the physician food service assistant and helped reconcile the medications. I helped take a detailed family and social history as well. I formulated the assessment and plan personally with the physician food service assistant and went over it with the patient. Pt will be monitor in the ICU and plan to have pacemaker placement tomorrow. NPO after midnight. MD Martin
--- NOTE | 2018-08-19 18:31 | Cardiology Consultation ---
Date of Consultation August 19, 2018 Assessment & Plan (1) Third degree heart block: Patient's symptoms are likely related to his complete heart block. He is known to have an element of conduction disease at baseline which is likely progressed to the current AV block. Appears hemodynamically stable currently but there is not appear to be in easily reversible cause of his conduction disease. While Lyme disease is a possibility, he does not report symptoms consistent with the recent tick bite, and given his baseline conduction disease this is more likely simply progression of this previously documented process. Does appear to have alternating right and left bundle branch block on EKG suggesting quite severe conduction disease. We will check a thyroid panel for completeness sake, my impression is that he will need permanent pacing and have tentatively scheduled him for a dual-chamber device tomorrow. With his preserved LV systolic function does not appear to be a candidate for resynchronization therapy. Present on Admission?: Yes History of Present Illness Reason for Consultation: Complete heart block Requesting Physician: Nehemiah Attending Physician: Roque Salazar MD History of Present Illness Patient is a 73-year-old gentleman with a reported history of chronic left bundle branch block has been experiencing worsening dyspnea on exertion for approximately 1 month. Patient states that he is generally an active individual who does not have symptoms of dyspnea or chest discomfort with activity. Over the past month he has been experiencing progressively worsening dyspnea on exertion. It became so severe recently that he has difficulty ambulating even 10 feet without dyspnea. He did present to his primary care physician and was prescribed a diuretic for presumed pulmonary vascular congestion. This not appear to improve his symptoms significantly. He denies any symptoms of dizziness or lightheadedness with exertion or at rest. He has not had syncope. He has not been aware of any palpitations. He has not had symptoms of chest discomfort. He has not had a recent fevers or chills. He has had some mild lower extremity edema and feels that his legs are somewhat swollen. He has not report orthopnea or paroxysmal nocturnal dyspnea. Allergies Allergy/AdvReac Type Severity Reaction Status Date / Time mold Allergy Intermediate NASAL Verified 06/18/16 07:12 BURNING, LEFT EYE IRRITATION Penicillins Allergy Intermediate HIVES ON Verified 06/18/16 07:12 BODY levofloxacin Allergy Mild UNKNOWN Unverified 06/18/16 07:12 vancomycin Allergy Unknown UNKNOWN Verified 06/04/16 08:57 Dust Allergy Intermediate NASAL Uncoded 06/18/16 07:12 BURNING, LEFT EYE IRRITATION Home Medications Home Medications Medication Instructions Recorded Confirmed Type alprazolam 0.5 mg PO BID PRN 08/19/18 08/19/18 History amitriptyline 25 mg PO HS 08/19/18 08/19/18 History atorvastatin 20 mg PO DAILY@1500 08/19/18 08/19/18 History bimatoprost [Lumigan] 1 drp OPHTHALMIC (EYE) UD 08/19/18 08/19/18 History furosemide 20 mg PO MOWEFR 08/19/18 08/19/18 History levothyroxine 75 mcg PO DAILY 08/19/18 08/19/18 History metformin 500 mg PO BIDM 08/19/18 08/19/18 History nifedipine 90 mg PO DAILY 08/19/18 08/19/18 History omeprazole 20 mg PO DAILY 08/19/18 08/19/18 History polyethylene glycol 3350 17 g PO DAILY PRN 08/19/18 08/19/18 History potassium chloride [Klor-Con M10] 10 meq PO BIDM 08/19/18 08/19/18 History ranitidine HCl 75 mg PO DAILY 08/19/18 08/19/18 History timolol maleate [Timoptic] 1 drp OPHTHALMIC (EYE) HS 08/19/18 08/19/18 History Patient History Medical History Chronic maxillary sinusitis (Chronic) Hypothyroidism (Chronic) Anxiety (Chronic) Hyperlipidemia (Chronic) Hypertension (Chronic) Left bundle branch block (Chronic) Surgical History History of sinus surgery (Resolved) History of appendectomy (Resolved) History of malignant neoplasm of colon (Resolved) s/p resection History of knee replacement (Resolved) H/O hernia repair (Resolved) Family History Father CAD (coronary artery disease) Social History Current Living Situation: Alone Other Information That Helps Us Care for You: No Feels Safe at Home: Yes Safety Concerns: Feels Safe At This Time Smoking Status: Never smoker Do You Dip or Chew Tobacco: No Second Hand Exposure: No Tobacco Cessation Education Requested by Patient: No Hx Alcohol Use: No Hx Substance Use: No Beliefs That Will Affect Care: None Preferred Language: [place] Communication Ability: Effective Chemical Process Engineer Required: No Review of Systems Complete. Pertinent positives noted in history of present illness per Physical Exam 2 Vital Signs (Past 24 Hours): Last Vital Signs Temp 36.5 C 08/19/18 16:02 Pulse 38 L 08/19/18 16:02 Resp 16 08/19/18 16:02 BP 172/64 H 08/19/18 16:02 Pulse Ox 96 08/19/18 16:02 Physical Exam: The patient is alert and oriented. Mood and affect appeared normal. He answered all questions appropriately. HEENT: Pupils are equal and reactive to light and accommodation. Extraocular movements are intact. The sclerae are anicteric. Neuro: Cranial nerves intact Neck: Patient's neck is supple. He has palpable carotid pulses bilaterally without bruits on auscultation there is radiation of an aortic murmur into both carotids. There is no evidence of jugular venous distention. The thyroid is not enlarged. Lungs: Clear to auscultation bilaterally. He has good air movement without use of accessory muscles. No rales wheezes or rhonchi. Cardiac: Heart demonstrates a regular rate and rhythm. Normal S1 and S2. Crescendo systolic murmur heard best at the right upper sternal border. Pulses: The patient has palpable radial pulses bilaterally that are equal in intensity Extremities: There was no evidence of hypoperfusion. There is no cyanosis or clubbing. There is only mild edema. Skin: I did not appreciate any rashes on examination today. Results & Data Laboratory Results Abnormal Lab Results 08/19/18 08/19/18 08/19/18 11:50 11:50 11:50 WBC 10.95 H RBC 4.68 L Hgb 13.9 L POC Hgb Hct 41.2 L POC Hct MCV 88.0 MCH 29.7 MCHC 33.7 RDW Std Deviation 46.1 RDW Coeff of Wilmer 14.4 Plt Count 312 MPV 11.1 H Immature Gran % (Auto) 0.4 Neut % (Auto) 64.0 Lymph % (Auto) 25.0 Sharkey % (Auto) 8.9 Eos % (Auto) 1.2 Baso % (Auto) 0.5 Immature Gran # (Auto) 0.04 H Neut # (Auto) 7.00 H Lymph # (Auto) 2.74 Sharkey # (Auto) 0.98 H Eos # (Auto) 0.13 Baso # (Auto) 0.06 PT 10.4 INR 1.0 POC Sodium Sodium 142 POC Potassium Potassium 3.9 POC Chloride Chloride 112 H Carbon Dioxide 20 L POC Total CO2 Anion Gap 10.0 POC Anion Gap POC BUN BUN 25 H Creatinine 1.62 H POC Creatinine Est Cr Clr Drug Dosing 42.6 Est GFR ( Amer) 47.7 Est GFR (Non-Af Amer) 41.2 BUN/Creatinine Ratio 15.6 Glucose 189 H POC Glucose POC Glucose (other) Calcium 8.9 POC Ioniz Calcium Jf Total Bilirubin 0.5 AST 15 ALT 32 Alkaline Phosphatase 169 H Troponin I 0.022 Total Protein 7.3 Albumin 3.6 Globulin 3.7 Albumin/Globulin Ratio 1.0 Nasal Screen MRSA (PCR) 08/19/18 08/19/18 08/19/18 12:09 14:30 15:59 WBC RBC Hgb POC Hgb 13.9 L Hct POC Hct 41 L MCV MCH MCHC RDW Std Deviation RDW Coeff of Wilmer Plt Count MPV Immature Gran % (Auto) Neut % (Auto) Lymph % (Auto) Sharkey % (Auto) Eos % (Auto) Baso % (Auto) Immature Gran # (Auto) Neut # (Auto) Lymph # (Auto) Sharkey # (Auto) Eos # (Auto) Baso # (Auto) PT INR POC Sodium 144 Sodium POC Potassium 3.6 Potassium POC Chloride 111 Chloride Carbon Dioxide POC Total CO2 20 L Anion Gap POC Anion Gap 18.0 POC BUN 23 H BUN Creatinine POC Creatinine 1.5 H Est Cr Clr Drug Dosing Est GFR ( Amer) Est GFR (Non-Af Amer) BUN/Creatinine Ratio Glucose POC Glucose 143 H POC Glucose (other) 191 H Calcium POC Ioniz Calcium Jf 1.15 Total Bilirubin AST ALT Alkaline Phosphatase Troponin I Total Protein Albumin Globulin Albumin/Globulin Ratio Nasal Screen MRSA (PCR) Negative Diagnostic Findings Preliminary evaluation of his echocardiogram reveals preserved LV systolic function without significant valvular heart disease Single-view chest x-ray did not demonstrate any acute cardiopulmonary process ECG Additional Comments: Normal sinus rhythm with complete heart block and alternating right and left bundle branch block
--- NOTE | 2018-08-19 19:35 | Critical Care Consultation ---
Date of Consultation August 19, 2018 Assessment & Plan (1) Third degree heart block: Impression: 1. New onset high-grade AV block, mostly complete heart block. 2. History of hypertension. 3. Cardiomegaly, unclear to me if the patient had a history of CHF superimposed. 4. History of chronic sinusitis status post stenting of the maxillary sinuses. Plan: 1. I will hold off on management of his blood pressure given the fact that his heart rate is in the 30s. 2. Keep the transcutaneous pads in place. 3. Monitor in the ICU. 4. Appreciate cardiology input. 5. N.p.o. post midnight for pacemaker placement in the morning. 6. DVT and GI prophylaxis. 7. Oral intake for today. 8. Discussed with the patient, with the staff in details. Critical care time spent with the patient was 45 minutes. History of Present Illness Reason for Consultation: Complete heart block. Requesting Physician: Dr. fuentes Attending Physician: Roque Fuentes MD History of Present Illness Dear Dr. Fuentes: Thank you for your kind referral of Mr. Quintero to critical care service. This is 73-year-old gentleman with a history of hypertension, chronic sinus surgery, colon CA status post resection, hyperlipidemia, presented to the hospital with feeling heartburn and not feeling well. For the past several days. The patient on his arrival, noted that he could not even walk to the bathroom without being short of breath. Noted also increased swelling in his lower extremities. 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 In the ED, the patient was found to be in complete heart block and was admitted to the ICU after placing transcutaneous pads on him. Patient was evaluated by Dr. Bose from cardiology , and plan for pacemaker placement in the morning. When I interviewed the patient, he was asymptomatic, no respiratory or cardiac symptoms, no pain, no shortness of breath, no nausea or vomiting, no dizziness or near syncopal episodes, denies any neck pain visual disturbances, he does have increased swelling in his lower extremities but minimal, he feels the swelling behind his knee pads according to him. He denies any change in bowel movements or urine habits. No swelling in his joints in general. Neurologically he is intact without any deficit. His past medical history as mentioned above, he is non-smoker lifetime and he does not have any industrial exposure., His family history does not contribute to his current illness. Allergies Allergy/AdvReac Type Severity Reaction Status Date / Time mold Allergy Intermediate NASAL Verified 06/18/16 07:12 BURNING, LEFT EYE IRRITATION Penicillins Allergy Intermediate HIVES ON Verified 06/18/16 07:12 BODY levofloxacin Allergy Mild UNKNOWN Unverified 06/18/16 07:12 vancomycin Allergy Unknown UNKNOWN Verified 06/04/16 08:57 Dust Allergy Intermediate NASAL Uncoded 06/18/16 07:12 BURNING, LEFT EYE IRRITATION Home Medications Home Medications Medication Instructions Recorded Confirmed Type alprazolam 0.5 mg PO BID PRN 08/19/18 08/19/18 History amitriptyline 25 mg PO HS 08/19/18 08/19/18 History atorvastatin 20 mg PO DAILY@1500 08/19/18 08/19/18 History bimatoprost [Lumigan] 1 drp OPHTHALMIC (EYE) UD 08/19/18 08/19/18 History furosemide 20 mg PO MOWEFR 08/19/18 08/19/18 History levothyroxine 75 mcg PO DAILY 08/19/18 08/19/18 History metformin 500 mg PO BIDM 08/19/18 08/19/18 History nifedipine 90 mg PO DAILY 08/19/18 08/19/18 History omeprazole 20 mg PO DAILY 08/19/18 08/19/18 History polyethylene glycol 3350 17 g PO DAILY PRN 08/19/18 08/19/18 History potassium chloride [Klor-Con M10] 10 meq PO BIDM 08/19/18 08/19/18 History ranitidine HCl 75 mg PO DAILY 08/19/18 08/19/18 History timolol maleate [Timoptic] 1 drp OPHTHALMIC (EYE) HS 08/19/18 08/19/18 History Patient History Medical History Chronic maxillary sinusitis (Chronic) Hypothyroidism (Chronic) Anxiety (Chronic) Hyperlipidemia (Chronic) Hypertension (Chronic) Left bundle branch block (Chronic) Surgical History History of sinus surgery (Resolved) History of appendectomy (Resolved) History of malignant neoplasm of colon (Resolved) s/p resection History of knee replacement (Resolved) H/O hernia repair (Resolved) Family History Father CAD (coronary artery disease) Social History Current Living Situation: Alone Other Information That Helps Us Care for You: No Feels Safe at Home: Yes Safety Concerns: Feels Safe At This Time Smoking Status: Never smoker Do You Dip or Chew Tobacco: No Second Hand Exposure: No Tobacco Cessation Education Requested by Patient: No Hx Alcohol Use: No Hx Substance Use: No Beliefs That Will Affect Care: None Preferred Language: Setswana Communication Ability: Effective Roofer Assistant Required: No Review of Systems 14 systems were reviewed, unremarkable except for the above. Physical Exam 2 Vital Signs (Past 24 Hours): Last Vital Signs Temp 36.5 C 08/19/18 16:02 Pulse 38 L 08/19/18 16:02 Resp 16 08/19/18 16:02 BP 172/64 H 08/19/18 16:02 Pulse Ox 96 08/19/18 16:02 Physical Exam: Vital signs are stable, S1-S2 bradycardia, systolic ejection murmur, abdomen is benign, I did not appreciate ankle edema. Neurologically he is intact. No rash was noted. No swelling in the popliteal area. Results & Data Laboratory Results Labs were reviewed and are all acceptable. Diagnostic Findings Chest x-ray showed cardiomegaly but no pulmonary vascular congestion.
[2018-08-19] MEDS ORDERED: POLYETHYLENE (MIRALAX) 17 GM PACK PO PRN (20:47)
[2018-08-19] MEDS: TIMOLOL MALEATE 0.25% OP SOLN 5 ML BTL OP SCH (22:21)
[2018-08-19] MEDS: [UNRECOGNIZED DRUG - OTHER] SCH (22:24)
[2018-08-19] MEDS: ALPRAZolam 0.5 MG TABLET PO PRN (22:24)
[2018-08-20] MEDS ORDERED: NURSING DECISION MEDICATION ONE (03:14)
[2018-08-20] MEDS ORDERED: COUGH DROP (SUGAR FREE) LOZ 24 LOZ/1 BOX BUCCAL ONE (03:22)
[2018-08-20] MEDS ORDERED: COUGH DROP (SUGAR FREE) LOZ 24 LOZ/1 BOX BUCCAL PRN (03:40)
[2018-08-20 04:51] LABS: Hemoglobin 12.7 g/dL (14.0-18.0); Mean Corpuscular Hgb Conc 34.3 g/dL (32-36); Mean Corpuscular Volume 87.1 fL (80-100); Mean Platelet Volume 10.4 fL (7.4-10.4); Platelet Count 258 K/uL (130-400); RDW Coefficient of Variation 14.3 % (11.5-14.5); Red Blood Count 4.25 M/uL (4.7-6.1); White Blood Count 10.26 K/uL (4.8-10.8)
[2018-08-20 05:26] LABS: BUN Creatinine Ratio 17.7 (10-20); Calcium 8.4 mg/dl (8.5-10.1); Creatinine Clr Calc Pharmacy 53.9 ml/min; Est GFR (African American) 63.5; Est GFR (Non-African American) 54.8; Magnesium 2.1 mg/dl (1.8-2.4); Potassium 3.3 mmol/L (3.5-5.1)
[2018-08-20] MEDS: LEVOTHYROXINE SODIUM 75 MCG TABLET PO SCH (06:29)
[2018-08-20] MEDS: [UNRECOGNIZED DRUG - OTHER] SCH ×2 (07:16→16:28)
[2018-08-20] MEDS ORDERED: fentaNYL citrate 100 MCG/2 ML VIAL ONE (07:25)
[2018-08-20] MEDS ORDERED: MIDAZOLAM HCL 5 MG/ML 1 ML VIAL ONE (07:25)
[2018-08-20] MEDS ORDERED: BUPIVACAINE 0.25% 30 ML VIAL ONE (07:26)
[2018-08-20] MEDS ORDERED: BACITRACIN INJ 50,000 UNIT VIAL ONE (07:26)
[2018-08-20] MEDS ORDERED: LIDOCAINE HCL 1% 20 ML VIAL ONE (07:26)
--- NOTE | 2018-08-20 07:53 | Pre Anesthesia Assessment ---
Date of Service August 20, 2018 Pre Sedation Assessment Vital Signs Temp Pulse Pulse Resp BP BP Pulse Ox 08/20/18 06:02 32 L 9 L 169/62 H 94 08/20/18 05:01 33 L 8 L 165/56 H 93 08/20/18 04:01 37 L 16 170/57 H 93 08/20/18 03:01 33 L 22 159/57 H 96 08/20/18 02:01 33 L 10 L 153/57 H 95 08/20/18 01:04 34 L 14 168/55 H 95 08/20/18 00:02 36.6 C 34 L 18 155/63 H 97 08/19/18 23:01 34 L 17 168/58 H 93 08/19/18 22:02 46 L 28 H 145/102 H 93 08/19/18 21:01 37 L 22 170/60 H 93 08/19/18 20:01 36.7 C 38 L 19 164/58 H 93 08/19/18 20:00 50 L 08/19/18 19:01 43 L 24 165/59 H 93 08/19/18 16:02 36.5 C 38 L 16 172/64 H 96 08/19/18 16:00 38 L 15 96 08/19/18 15:02 48 L 26 H 174/57 H 94 08/19/18 15:00 37 L 19 94 08/19/18 14:09 36.6 C 36 L 15 184/63 H 98 08/19/18 13:43 41 L 17 182/66 H 94 08/19/18 13:23 34 L 24 178/64 H 97 08/19/18 13:10 63 23 97 08/19/18 13:00 38 L 12 96 08/19/18 12:50 34 L 15 97 08/19/18 12:44 40 L 17 191/64 H 99 08/19/18 12:40 42 L 12 97 08/19/18 12:30 39 L 16 97 08/19/18 12:20 32 L 17 97 08/19/18 12:10 35 L 18 97 08/19/18 12:00 0 L 10 L 97 08/19/18 11:59 104 H 25 H 191/64 H 98 08/19/18 11:48 36.4 C L 84 26 H 191/64 H 98 Cardiovascular + bradycardic Respiratory + respiratory effort normal Pre-Sedation Airway Assessment Smoking Status: Never smoker Hx Sleep Apnea: No Hx Difficult Intubation: No Short, Thick Neck: No Thyromental Distance: > or= 3.5 Finger Breadths Oral Cavity: + WNL Mallampati Class: III ASA: ASA3 Procedure Planning Contraindications for Sedation: none Current Medications Reviewed: Yes Notes The planned sedation has been discussed with the patient. Informed Consent was obtained. I have identified the patient, determined the appropriateness of sedation and have assessed the patient immediately prior to the procedure. All medicine(s) and interventions are by my order.
[2018-08-20] MEDS ORDERED: CLINDAMYCIN 600 MG/54 ML BAG IV SCH (08:00)
--- NOTE | 2018-08-20 08:46 | Procedure Note ---
Procedure Note Date of Service August 20, 2018 Note Procedure performed: Implantation of dual-chamber pacemaker Staff quality control associate: Estuardo Bose MD Indication: The patient is a 73-year-old gentleman with a history of conduction disease who presented with dyspnea on exertion and complete heart block. He still be a good candidate for permanent pacing due to symptomatic nonreversible AV node dysfunction. A dual-chamber device was selected as the patient is currently in sinus rhythm and wished to maintain AV synchrony. Procedure in detail: The patient was informed of the risks benefits and alternatives to the intended procedure and she wished to proceed. He was taken to the electrophysiology suite in a fasting state. A preoperative antibiotic had been administered. The patient was monitored electrocardiographically throughout today's procedure and conscious sedation was administered per protocol. The left upper pectoral area is prepped and draped in usual sterile fashion. This area was anesthetized using subcutaneous administration of a xylocaine solution. An incision was made at this site and carried down to the prepectoralis fascia using sharp dissection. Electrocautery was also employed for dissection as well as for hemostasis. A device pocket was fashioned tissues above the pectoralis muscle. Subsequent to this maneuver the left axillary vein was accessed using modified Seldinger technique. Sheaths were placed over guidewires at this site and used to facilitate passage of the pacing leads to the respective chambers under fluoroscopic guidance. This included right atrial and right ventricular leads. Adequate sensing and threshold parameters were obtained prior to Active fixation of the leads to the endocardial surface. The proximal portion leads were then sutured the prepectoral fascia using nonabsorbable suture. The device pocket was irrigated with antibiotic solution. The leads were then attached to the device. The device and leads were then placed in the pocket and pocket was closed in 3 layers of absorbable suture. Steri-Strips and sterile dressing were applied. The device was tested noninvasively prior to conclusion the procedure. The patient tolerated procedure well there no immediate complications. Equipment used: New pulse generator: [employer]. Model number: [id number] serial number [id number] Right atrial lead: [employer]. Model number: 4076 serial number [id number] Right ventricular lead: [employer]pper [employer]onic. Model number: 4076 serial number [id number] Measured data: Right atrial lead: P waves measured 1.4 mV. Pacing threshold 0.9 V at 0.4 ms with a pacing impedance of 533 ohms Right ventricular lead: No intrinsic R waves were measured. Pacing threshold was 0.4 V at 0.4 ms with a pacing impedance of 647 on Impression: Successful implantation of dual-chamber permanent pacemaker
[2018-08-20] MEDS: PANTOprazole 40 MG TAB PO SCH (09:00)
--- NOTE | 2018-08-20 09:41 | Cardiology Progress Note ---
Date of Service August 20, 2018 Assessment & Plan (1) Third degree heart block: Patient has a history of chronic conduction system disease with long- standing left bundle branch block presents now with at least one weeks history of exertional dyspnea fatigue and mild lower extremity edema. EKG on presentation demonstrates sinus rhythm with third-degree AV block and ventricular escape rhythm rate 35. He does not appear hemodynamically compromised blood pressures are mildly elevated (would not treat) and renal function appears stable Status post dual-chamber pacemaker appropriate function today heart rate now tracking nicely (2) Left bundle branch block: History of long-standing chronic conduction system disease (3) Hypertension: Anticipate resuming prehospital medications. Echocardiogram demonstrates left hypertrophy with preserved LV systolic function Subjective Patient seen and examined post pacemaker insertion. Feels well denies any complaints surgical site without discomfort. Notes no dizziness or lightheadedness. Lower extremity edema improved Physical Exam 2 Vital Signs (Past 24 Hours): Last Vital Signs Temp 36.6 C 08/20/18 09:00 Pulse 75 08/20/18 09:00 Resp 16 08/20/18 09:00 BP 166/79 H 08/20/18 09:00 Pulse Ox 95 08/20/18 09:00 Constitutional: WD/WN, vitals as above no acute distress Eyes: PERRL, conjunctivae normal, anicteric sclerae ENMT: external ear and nose normal, oropharynx normal Neck: trachea midline, no thyromegaly + thick neck Respiratory: normal respiratory effort, lungs clear to auscultation Cardiovascular: RRR, no murmur, no edema Heart Sounds: no gallop Chest (Breasts): Chest: + pacemaker (Site bandaged) Gastrointestinal (Abdomen): normal bowel sounds, soft, nontender, no hepatosplenomegaly Results & Data Laboratory Results Laboratory Results - last 24 hr 08/19/18 08/19/18 08/19/18 11:50 11:50 11:50 WBC 10.95 H RBC 4.68 L Hgb 13.9 L POC Hgb Hct 41.2 L POC Hct MCV 88.0 MCH 29.7 MCHC 33.7 RDW Std Deviation 46.1 RDW Coeff of Wilmer 14.4 Plt Count 312 MPV 11.1 H Immature Gran % (Auto) 0.4 Neut % (Auto) 64.0 Lymph % (Auto) 25.0 Rolette % (Auto) 8.9 Eos % (Auto) 1.2 Baso % (Auto) 0.5 Immature Gran # (Auto) 0.04 H Neut # (Auto) 7.00 H Lymph # (Auto) 2.74 Rolette # (Auto) 0.98 H Eos # (Auto) 0.13 Baso # (Auto) 0.06 PT 10.4 INR 1.0 POC Sodium Sodium 142 POC Potassium Potassium 3.9 POC Chloride Chloride 112 H Carbon Dioxide 20 L POC Total CO2 Anion Gap 10.0 POC Anion Gap POC BUN BUN 25 H Creatinine 1.62 H POC Creatinine Est Cr Clr Drug Dosing 42.6 Est GFR ( Amer) 47.7 Est GFR (Non-Af Amer) 41.2 BUN/Creatinine Ratio 15.6 Glucose 189 H POC Glucose POC Glucose (other) Calcium 8.9 POC Ioniz Calcium Jf Magnesium Total Bilirubin 0.5 AST 15 ALT 32 Alkaline Phosphatase 169 H Troponin I 0.022 Total Protein 7.3 Albumin 3.6 Globulin 3.7 Albumin/Globulin Ratio 1.0 TSH Nasal Screen MRSA (PCR) 08/19/18 08/19/18 08/19/18 12:09 14:30 15:59 WBC RBC Hgb POC Hgb 13.9 L Hct POC Hct 41 L MCV MCH MCHC RDW Std Deviation RDW Coeff of Wilmer Plt Count MPV Immature Gran % (Auto) Neut % (Auto) Lymph % (Auto) Rolette % (Auto) Eos % (Auto) Baso % (Auto) Immature Gran # (Auto) Neut # (Auto) Lymph # (Auto) Rolette # (Auto) Eos # (Auto) Baso # (Auto) PT INR POC Sodium 144 Sodium POC Potassium 3.6 Potassium POC Chloride 111 Chloride Carbon Dioxide POC Total CO2 20 L Anion Gap POC Anion Gap 18.0 POC BUN 23 H BUN Creatinine POC Creatinine 1.5 H Est Cr Clr Drug Dosing Est GFR ( Amer) Est GFR (Non-Af Amer) BUN/Creatinine Ratio Glucose POC Glucose 143 H POC Glucose (other) 191 H Calcium POC Ioniz Calcium Jf 1.15 Magnesium Total Bilirubin AST ALT Alkaline Phosphatase Troponin I Total Protein Albumin Globulin Albumin/Globulin Ratio TSH Nasal Screen MRSA (PCR) Negative 08/19/18 08/20/18 08/20/18 21:07 01:46 04:39 WBC 10.26 RBC 4.25 L Hgb 12.7 L POC Hgb Hct 37.0 L POC Hct MCV 87.1 MCH 29.9 MCHC 34.3 RDW Std Deviation 45.0 RDW Coeff of Wilmer 14.3 Plt Count 258 MPV 10.4 Immature Gran % (Auto) Neut % (Auto) Lymph % (Auto) Rolette % (Auto) Eos % (Auto) Baso % (Auto) Immature Gran # (Auto) Neut # (Auto) Lymph # (Auto) Rolette # (Auto) Eos # (Auto) Baso # (Auto) PT INR POC Sodium Sodium POC Potassium Potassium POC Chloride Chloride Carbon Dioxide POC Total CO2 Anion Gap POC Anion Gap POC BUN BUN Creatinine POC Creatinine Est Cr Clr Drug Dosing Est GFR ( Amer) Est GFR (Non-Af Amer) BUN/Creatinine Ratio Glucose POC Glucose 96 94 POC Glucose (other) Calcium POC Ioniz Calcium Jf Magnesium Total Bilirubin AST ALT Alkaline Phosphatase Troponin I Total Protein Albumin Globulin Albumin/Globulin Ratio TSH Nasal Screen MRSA (PCR) 08/20/18 04:39 WBC RBC Hgb POC Hgb Hct POC Hct MCV MCH MCHC RDW Std Deviation RDW Coeff of Wilmer Plt Count MPV Immature Gran % (Auto) Neut % (Auto) Lymph % (Auto) Rolette % (Auto) Eos % (Auto) Baso % (Auto) Immature Gran # (Auto) Neut # (Auto) Lymph # (Auto) Rolette # (Auto) Eos # (Auto) Baso # (Auto) PT INR POC Sodium Sodium 144 POC Potassium Potassium 3.3 L D POC Chloride Chloride 114 H Carbon Dioxide 20 L POC Total CO2 Anion Gap 10.0 POC Anion Gap POC BUN BUN 23 H Creatinine 1.28 D POC Creatinine Est Cr Clr Drug Dosing 53.9 Est GFR ( Amer) 63.5 Est GFR (Non-Af Amer) 54.8 BUN/Creatinine Ratio 17.7 Glucose 106 H POC Glucose POC Glucose (other) Calcium 8.4 L POC Ioniz Calcium Jf Magnesium 2.1 Total Bilirubin AST ALT Alkaline Phosphatase Troponin I Total Protein Albumin Globulin Albumin/Globulin Ratio TSH 1.380 Nasal Screen MRSA (PCR)
[2018-08-20] MEDS: ALPRAZolam 0.5 MG TABLET PO PRN ×2 (12:39→20:01)
--- NOTE | 2018-08-20 13:37 | Hospitalist Progress Note ---
Date of Service August 20, 2018 Assessment & Plan (1) Third degree heart block: This is a 73-year-old male with a PMH of HTN, HLD, DM II, hypothyroidism and other medical problems listed below who presented with third degree heart block and is POD#0 s/p pacemaker placement. -Initial EKG with third-degree heart block at 34 bpm -CXR without acute cardiopulmonary abnormalities. Initial troponin is negative -Successful implantation of dual-chamber pacemaker by Dr. Bose today -Will continue to monitor in ICU for now -Cardiology consulted (2) Hypertension: BP of 155/89 post-procedure -Lasix and Procardia currently held--cardiology anticipates resuming medications (3) Left bundle branch block: Chronic (4) Hypothyroidism: Continue levothyroxine (5) Anxiety: Xanax as needed (6) Hyperlipidemia: Continue statin DVT Ppx: SCDs for now Code status: FULL per discussion with patient PCP: Henny Dispo: Admitted to ICU. Discharge planning ordered. Patient seen in collaboration with Dr. Salazar. Please see addendum. Supervising Physician Co-Signing Physician Notes Pt was seen and examined. Agreed with with Naomi BATISTA exam, assessment and Plan. S/P day#1 pacemaker placement that was successful implantation of dual- chamber pacemaker by Dr. Bose today. No post-op complication. Lisinopril added for elevating BP. Clinically stable. Continue monitor closely. MD Martin Subjective Seen and examined in the ICU following pacemaker placement by Dr. Bose. Feeling well. Denies any lightheadedness, dizziness, chest pain or shortness of breath. No pain at surgical site. Tolerated lunch without issue. Review of Systems All systems reviewed & are unremarkable except as noted in HPI & below Physical Exam 2 Vital Signs (Past 24 Hours): Last Vital Signs Temp 36.9 C 08/20/18 12:01 Pulse 91 H 08/20/18 12:31 Resp 21 08/20/18 12:31 BP 192/91 H 08/20/18 12:31 Pulse Ox 97 08/20/18 12:31 Physical Exam: General Appearance: WD/WN, no apparent distress, resting comfortably Head: normocephalic, atraumatic Eyes: normal inspection, PERRL, EOMI ENT: hearing grossly normal, pharynx normal (moist mucous membranes) Neck: supple, no JVD, no adenopathy Respiratory/Chest: Pacemaker site bandage clean, dry, intact. Lungs clear to auscultation. No wheezes, rales or rhonci. No respiratory distress or accessory muscle use Cardiovascular: regular rate, rhythm, no murmur, normal peripheral pulses Abdomen/GI: normal bowel sounds, soft, non-tender to palpation Extremities/Musculoskelatal: normal inspection, no calf tenderness, normal capillary refill, no pedal edema Neurologic/Psych: alert, normal mood/affect, oriented x 3 Skin: normal color, warm/dry Results & Data Laboratory Results Short CBC 08/20/18 Range/Units 04:39 WBC 10.26 (4.8-10.8) K/uL Hgb 12.7 L (14.0-18.0) g/dL Hct 37.0 L (42-52) % Plt Count 258 (130-400) K/uL BMP 08/20/18 04:39 Sodium 144 Potassium 3.3 L D Chloride 114 H Carbon Dioxide 20 L BUN 23 H Creatinine 1.28 D Glucose 106 H Calcium 8.4 L
[2018-08-20] MEDS: ATORVASTATIN 20 MG TAB PO SCH (15:12)
[2018-08-20] MEDS: CLINDAMYCIN 600 MG in DEXTROSE 5% 50 ML IV SCH ×2 (16:28→23:35)
[2018-08-20] MEDS ORDERED: OXYCODONE HCL IR 5 MG TAB (IMMEDIATE RELEASE) PO PRN (17:30)
--- NOTE | 2018-08-20 19:37 | Critical Care Progress Note ---
Date of Service August 20, 2018 Assessment & Plan (1) Third degree heart block: Impression: 1. New onset high-grade AV block, mostly complete heart block. 2. History of hypertension. 3. Cardiomegaly, unclear to me if the patient had a history of CHF superimposed. 4. History of chronic sinusitis status post stenting of the maxillary sinuses. Plan: 1. Improved significantly after placement of permanent pacemaker. 2. Resume his home medications. 3. Monitor in the ICU. 4. Appreciate cardiology input. 5. Oral intake. 6. DVT and GI prophylaxis. 7. Blood pressure remains slightly elevated, hopefully it will correct with nifedipine. 8. Restart the patient on metformin. Discussed with the staff on rounds and details. Critical care time spent with the patient was 45 minutes. Subjective The patient is asymptomatic from pulmonary standpoint, denies any chest pain, he feels much better after the placement of a permanent pacemaker. No new symptoms. Physical Exam 2 Vital Signs (Past 24 Hours): Last Vital Signs Temp 36.7 C 08/20/18 18:00 Pulse 80 08/20/18 18:00 Resp 25 H 08/20/18 18:00 BP 149/76 H 08/20/18 18:00 Pulse Ox 97 08/20/18 18:00 Physical Exam: Vital signs are stable, 100% paced, blood pressure is 160/80, respiratory rate is 25, O2 saturation 95%. S1-S2 regular rate and rhythm, systolic ejection murmur, distant breath sounds bilaterally, trace edema in the periphery. Results & Data Laboratory Results Labs were reviewed, and appears to be acceptable. Diagnostic Findings No new imaging.
[2018-08-20] MEDS: TIMOLOL MALEATE 0.25% OP SOLN 5 ML BTL OP SCH (19:58)
[2018-08-21 05:19] LABS: Hematocrit (blood only) 40.7 % (42-52); Hemoglobin 14.2 g/dL (14.0-18.0); Mean Corpuscular Hgb Conc 34.9 g/dL (32-36); Mean Platelet Volume 10.4 fL (7.4-10.4); Platelet Count 245 K/uL (130-400); RDW Coefficient of Variation 14.3 % (11.5-14.5); RDW Standard Deviation 45.6 fL (36.4-46.3); Red Blood Count 4.68 M/uL (4.7-6.1); White Blood Count 9.16 K/uL (4.8-10.8)
[2018-08-21] MEDS: LEVOTHYROXINE SODIUM 75 MCG TABLET PO SCH (05:33)
[2018-08-21 05:43] LABS: BUN Creatinine Ratio 17.6 (10-20); Calcium 7.9 mg/dl (8.5-10.1); Creatinine Clr Calc Pharmacy 60.5 ml/min; Potassium 3.4 mmol/L (3.5-5.1)
--- NOTE | 2018-08-21 06:58 | XRay Report ---
XR chest 2V routine HISTORY: 73 years-old Male EXACT TIME ORDERED Evaluate for pneumothorax and l status post placement of a left subclavian pacer COMPARISON: Chest radiographs August 19, 2017 TECHNIQUE: PA and lateral views of the chest FINDINGS: Cardiac silhouette is moderately enlarged. Status post placement of a left subclavian pacer with lead s overlying the expected locations of the right atrium and right ventricle. No postprocedural pneumot horax identified. Mild right hemidiaphragmatic elevation. Small bilateral pleural effusions with subs egmental bibasilar opacities suggestive of atelectasis. Degenerative changes of the shoulders and spi ne. Nipple shadow projects over the right lung base. IMPRESSION: 1. Cardiomegaly. 2. Status post placement of a left subclavian pacer. No postprocedural pneumothorax. 3. Small bilateral pleural effusions. The above report was generated using voice recognition software. It may contain grammatical, syntax o r spelling errors. Electronically signed by: Darrell Snyder M.D. 08/21/2018 6:57 AM
[2018-08-21] MEDS: [UNRECOGNIZED DRUG - OTHER] SCH ×3 (07:10→15:37)
[2018-08-21] MEDS: PANTOprazole 40 MG TAB PO SCH (08:07)
[2018-08-21] MEDS: CLINDAMYCIN 600 MG in DEXTROSE 5% 50 ML IV SCH (08:08)
[2018-08-21] MEDS ORDERED: NIFEdipine EXTENDED REL 30 MG TABCR PO SCH (09:00)
[2018-08-21] MEDS ORDERED: POTASSIUM CHLORIDE PWD 20 MEQ PACK PO ONE (09:15)
--- NOTE | 2018-08-21 09:17 | Cardiology Progress Note ---
Date of Service August 21, 2018 Assessment & Plan (1) Third degree heart block: Status post implantation of dual-chamber [employer] pacemaker. Normal function of the device. No evidence of complication. From a pacemaker standpoint the patient is ready for discharge. He was reminded to keep the wound dry and the Steri-Strip intact until follow-up in the outpatient setting. He should refrain from lifting the left arm above the shoulder behind the neck for 6 weeks. Subjective This morning the patient came to be feeling well. He states he has much more energy than prior to pacemaker implantation. He has minimal discomfort at the implant site. Physical Exam 2 Vital Signs (Past 24 Hours): Last Vital Signs Temp 36.9 C 08/21/18 08:00 Pulse 89 08/21/18 08:00 Resp 24 08/21/18 08:00 BP 171/88 H 08/21/18 08:00 Pulse Ox 93 08/21/18 08:00 Physical Exam: Device implant site appears to be healing well. Only a minor amount of ecchymosis. No erythema or hematoma. No drainage. Results & Data Laboratory Results Abnormal Lab Results 08/20/18 08/20/18 08/21/18 16:27 20:46 00:33 WBC RBC Hgb Hct MCV MCH MCHC RDW Std Deviation RDW Coeff of Wilmer Plt Count MPV Sodium Potassium Chloride Carbon Dioxide Anion Gap BUN Creatinine Est Cr Clr Drug Dosing Est GFR ( Amer) Est GFR (Non-Af Amer) BUN/Creatinine Ratio Glucose POC Glucose 90 119 H 118 H Calcium 08/21/18 08/21/18 05:05 05:05 WBC 9.16 RBC 4.68 L Hgb 14.2 Hct 40.7 L MCV 87.0 MCH 30.3 MCHC 34.9 RDW Std Deviation 45.6 RDW Coeff of Wilmer 14.3 Plt Count 245 MPV 10.4 Sodium 142 Potassium 3.4 L Chloride 111 H Carbon Dioxide 25 Anion Gap 6.0 BUN 20 H Creatinine 1.14 Est Cr Clr Drug Dosing 60.5 Est GFR ( Amer) 73.0 Est GFR (Non-Af Amer) 63.0 BUN/Creatinine Ratio 17.6 Glucose 130 H POC Glucose Calcium 7.9 L Diagnostic Findings Chest x-ray demonstrated good lead placement without evidence of pneumothorax I device interrogation revealed normal function of both the atrial and ventricular leads.
--- NOTE | 2018-08-21 10:10 | Hospitalist Progress Note ---
Date of Service August 21, 2018 Assessment & Plan (1) Third degree heart block: This is a 73-year-old male with a PMH of HTN, HLD, DM II, hypothyroidism and other medical problems listed below who presented with third degree heart block and is POD#0 s/p pacemaker placement. -Initial EKG with third-degree heart block at 34 bpm -CXR without acute cardiopulmonary abnormalities. Initial troponin is negative -Successful implantation of dual-chamber pacemaker by Dr. Bose today -EKG with atrial-sensed ventricular paced rhythm at 63 bpm -Will continue to monitor in ICU for now but okay for discharge, per Dr. Bose -Follow up [facility] Cardiology 3-4 weeks (2) Hypertension: BP elevated post-procedure. Given home procardia this morning. -Will add lisinopril 2.5mg daily at discharge, per Dr. Cerna -Resume home lasix dose MWF as well (3) Left bundle branch block: Chronic (4) Hypothyroidism: Continue levothyroxine (5) Anxiety: Xanax as needed (6) Hyperlipidemia: Continue statin DVT Ppx: SCDs for now Code status: FULL per discussion with patient PCP: Henny Dispo: Admitted to ICU. Awaiting PT/OT evaluation prior to discharge. Patient seen in collaboration with Dr. Salazar. Please see addendum. Supervising Physician Co-Signing Physician Notes Pt was seen and examined. Agreed with with Naomi BATISTA exam, assessment and Plan. S/P day#2 pacemaker placement that was successful implantation of dual- chamber pacemaker by Dr. Bose today. No post-op complication. Lisinopril increased to 10mg daily. Continue monitor closely. MD Martin Subjective Seen and examined in the ICU. POD#1 following pacemaker placement by Dr. Bose. Feeling well. Denies any lightheadedness, dizziness, chest pain or shortness of breath. Nurse reports patient was confused during the night and unsteady on his feet. Will plan for PT/OT evaluation prior to discharge since patient lives alone. Physical Exam 2 Vital Signs (Past 24 Hours): Last Vital Signs Temp 36.9 C 08/21/18 08:00 Pulse 89 08/21/18 08:00 Resp 24 08/21/18 08:00 BP 171/88 H 08/21/18 08:00 Pulse Ox 93 08/21/18 08:00 Physical Exam: General Appearance: WD/WN, no apparent distress, resting comfortably Head: normocephalic, atraumatic Eyes: normal inspection, PERRL, EOMI ENT: hearing grossly normal, pharynx normal (moist mucous membranes) Neck: supple, no JVD, no adenopathy Respiratory/Chest: Pacemaker site with steristrip in place. Clean, dry, intact. Lungs clear to auscultation. No wheezes, rales or rhonci. No respiratory distress or accessory muscle use Cardiovascular: regular rate, rhythm, no murmur, normal peripheral pulses Abdomen/GI: normal bowel sounds, soft, non-tender to palpation Extremities/Musculoskelatal: normal inspection, no calf tenderness, normal capillary refill, no pedal edema Neurologic/Psych: alert, normal mood/affect, oriented x 3 Skin: normal color, warm/dry Results & Data Laboratory Results Short CBC 08/21/18 Range/Units 05:05 WBC 9.16 (4.8-10.8) K/uL Hgb 14.2 (14.0-18.0) g/dL Hct 40.7 L (42-52) % Plt Count 245 (130-400) K/uL BMP 08/21/18 05:05 Sodium 142 Potassium 3.4 L Chloride 111 H Carbon Dioxide 25 BUN 20 H Creatinine 1.14 Glucose 130 H Calcium 7.9 L
--- NOTE | 2018-08-21 10:31 | Cardiology Progress Note ---
Date of Service August 21, 2018 Assessment & Plan (1) Third degree heart block: Patient has a history of chronic conduction system disease with long- standing left bundle branch block presents now with at least one weeks history of exertional dyspnea fatigue and mild lower extremity edema. EKG on presentation demonstrates sinus rhythm with third-degree AV block and ventricular escape rhythm rate 35. He does not appear hemodynamically compromised blood pressures are mildly elevated (would not treat) and renal function appears stable Status post dual-chamber pacemaker appropriate function today heart rate now tracking nicely Follow up [facility] Cardiology 3-4 weeks Laura Casillas (2) Left bundle branch block: History of long-standing chronic conduction system disease (3) Hypertension: Anticipate resuming prehospital medications. Echocardiogram demonstrates left hypertrophy with preserved LV systolic function Would add lisinopril2.5 mg po to nifedipine on discharge Subjective Patient seen and examined post pacemaker insertion. Feels well denies any complaints surgical site without discomfort. Notes no dizziness or lightheadedness. Pacemaker functioning appropriately Blood pressure up Physical Exam 2 Vital Signs (Past 24 Hours): Last Vital Signs Temp 36.9 C 08/21/18 08:00 Pulse 69 08/21/18 10:01 Resp 20 08/21/18 10:01 BP 186/91 H 08/21/18 10:01 Pulse Ox 95 08/21/18 10:01 Constitutional: WD/WN, vitals as above no acute distress Eyes: PERRL, conjunctivae normal, anicteric sclerae ENMT: external ear and nose normal, oropharynx normal Neck: trachea midline, no thyromegaly + thick neck Respiratory: normal respiratory effort, lungs clear to auscultation Cardiovascular: RRR, no murmur, no edema Rate/Rhythm: + bradycardic Heart Sounds: no gallop Extremities: + edema (1-2+ peripheral edema is present) Chest (Breasts): Chest: + pacemaker (Site bandaged) Gastrointestinal (Abdomen): normal bowel sounds, soft, nontender, no hepatosplenomegaly
[2018-08-21] MEDS ORDERED: LISINOPRIL 2.5 MG TAB PO ONE ×2 (13:08→17:22)
[2018-08-21 14:18] LABS: Appearance Urine Clear (Clear); Bacteria Urine Automated Negative (Negative); Bilirubin Urine Negative (Negative); Cast Urine Automated 0 /lpf (0-5); Color Urine Yellow; Epithelial Cell Urine Auto 0-5 /lpf (0-5); Glucose Urine UA Negative (Negative); Ketones Urine 1+ (Negative); Leukocyte Esterase Urine Negative (Negative); Nitrite Urine Negative (Negative); Protein Urine Trace (Negative); Specific Gravity Urine 1.011 (1.000-1.030); Urobilinogen Urine Negative (Negative); WBC Urine Automated 0 /hpf (0-5)
[2018-08-21] MEDS: ATORVASTATIN 20 MG TAB PO SCH (15:10)
[2018-08-21] MEDS: METFORMIN HCL 500 MG TAB PO SCH (16:15)
[2018-08-21] MEDS ORDERED: NIFEdipine EXTENDED REL 30 MG TABCR PO STA (17:23)
--- NOTE | 2018-08-21 17:59 | Critical Care Progress Note ---
Date of Service August 21, 2018 Assessment & Plan (1) Third degree heart block: Impression: 1. New onset high-grade AV block, mostly complete heart block. 2. History of hypertension. 3. Cardiomegaly, unclear to me if the patient had a history of CHF superimposed. 4. History of chronic sinusitis status post stenting of the maxillary sinuses. Plan: 1. Improved significantly after placement of permanent pacemaker. 2. Start nifedipine 90 mg daily. 3. Add lisinopril 10 mg p.o. daily. 4. Appreciate cardiology input. 5. Oral intake. 6. DVT and GI prophylaxis. 7. Disposition plan per principal team, he can be transferred to telemetry. 8. Restart the patient on metformin. Increase the dose to 1 g p.o. twice daily. Discussed with the staff on rounds and details. Critical care time spent with the patient was 35 minutes. Subjective Asymptomatic this a.m., tolerating oral intake, no new symptoms. Physical Exam 2 Vital Signs (Past 24 Hours): Last Vital Signs Temp 36.6 C 08/21/18 16:01 Pulse 68 08/21/18 16:01 Resp 18 08/21/18 16:01 BP 176/84 H 08/21/18 16:01 Pulse Ox 95 08/21/18 14:01 Physical Exam: Elevated blood pressure, S1-S2 regular rate and rhythm, paced, distant breath sounds bilaterally, abdomen is benign, 1+ edema in the periphery. Results & Data Laboratory Results Reviewed personally. Diagnostic Findings Chest x-ray with cardiomegaly, no infiltrate or pleural effusion.
[2018-08-21] MEDS: TIMOLOL MALEATE 0.25% OP SOLN 5 ML BTL OP SCH (19:47)
[2018-08-22] MEDS: [UNRECOGNIZED DRUG - OTHER] SCH (00:45)
[2018-08-22] MEDS: ALPRAZolam 0.5 MG TABLET PO PRN (01:48)
[2018-08-22 04:54] LABS: Hemoglobin 15.8 g/dL (14.0-18.0); Mean Corpuscular Hgb Conc 35.9 g/dL (32-36); Mean Corpuscular Volume 86.8 fL (80-100); Mean Platelet Volume 10.4 fL (7.4-10.4); Platelet Count 238 K/uL (130-400); RDW Coefficient of Variation 14.4 % (11.5-14.5); RDW Standard Deviation 45.6 fL (36.4-46.3); Red Blood Count 5.07 M/uL (4.7-6.1); White Blood Count 12.24 K/uL (4.8-10.8)
[2018-08-22 05:23] LABS: BUN Creatinine Ratio 17.3 (10-20); Calcium 8.4 mg/dl (8.5-10.1); Creatinine Clr Calc Pharmacy 65.7 ml/min; Est GFR (African American) 80.7; Est GFR (Non-African American) 69.6; Potassium 3.2 mmol/L (3.5-5.1)
[2018-08-22] MEDS: LEVOTHYROXINE SODIUM 75 MCG TABLET PO SCH (05:44)
[2018-08-22] MEDS ORDERED: POTASSIUM CHLORIDE 10 MEQ TABCR PO STA (07:25)
[2018-08-22] MEDS: METFORMIN HCL 500 MG TAB PO SCH (08:02)
[2018-08-22] MEDS: PANTOprazole 40 MG TAB PO SCH (08:03)
[2018-08-22] MEDS ORDERED: LISINOPRIL 10 MG TAB PO SCH (09:00)
[2018-08-22] MEDS ORDERED: NIFEdipine EXTENDED REL 30 MG TABCR PO SCH (09:00)
[2018-08-22] MEDS ORDERED: NIFEDIPINE 90 MG PO SCH (09:00)
--- NOTE | 2018-08-22 10:13 | Hospitalist Progress Note ---
Date of Service August 22, 2018 Assessment & Plan (1) Third degree heart block: Initial EKG with third-degree heart block at 34 bpm S/P day # 2 pacemaker placement. Successful implantation of dual-chamber pacemaker by Dr. Bose today EKG with atrial-sensed ventricular paced rhythm No arrythmia on tele monitor Follow up [facility] Cardiology 3-4 weeks Clinically stable to discharge (2) Hypertension: BP improved this morning very anxious to leave Continue Nifedipine 90mg daily Lisinopril increased to 10mg daily Resume home lasix dose MWF as well Check BMP in 1 week to monitor electrolytes and renal function (3) Left bundle branch block: Chronic (4) Hypothyroidism: Continue levothyroxine (5) Anxiety: Xanax as needed (6) Diabetes: Recent Hba1c 6.2 on 08/04 BS in the hospital elevated Metformin increased to 1g BID by the customer program manager team care Continue monitor BP (7) Hyperlipidemia: Continue statin DVT Ppx: SCDs for now Code status: FULL Dispo: Follow up with your primary care provider dr. Inman Follow up with your catrdiology on 09/04 @8:45 AM Subjective Pt was seen and examined Standing in the hallway already dressed to go home Pt said that he feels fine and his friend is coming to get him He said that he is ready to go home Denies any chest pain, palpitation, dizziness and SOB Physical Exam 2 Vital Signs (Past 24 Hours): Last Vital Signs Temp 36.4 C L 08/22/18 09:51 Pulse 80 08/22/18 09:51 Resp 25 H 08/22/18 09:51 BP 170/88 H 08/22/18 09:51 Pulse Ox 97 08/22/18 09:51 Physical Exam: General- No acute distress Head- atraumatic Eyes- PERRL, EOMI, ENT- oropharynx clear Neck- supple, no JVD Lungs- clear to auscultation Heart- regular rhythm; no murmur Abdomen- normal bowel sounds, soft, nontender Extremities- no calf tenderness Neuro- alert, oriented x 3; PERRL, EOMI; no facial palsy; no dysarthria Skin- warm & dry
--- NOTE | 2018-08-24 09:09 | Discharge Summary ---
Date of Service August 24, 2018 Admission HPI Per Admitting Provider This is a 73-year-old male with a PMH of HTN, HLD, DM II, hypothyroidism and other medical problems listed below who presents with progressively worsening shortness of breath x 1 month. Was seen in clinic by Dr. Inman last week and was started on Lasix 20 mg p.o. on Friday with some improvement. Has continued to experience dyspnea with exertion and was even short of breath on the phone today. Called PCP office and was advised to come to ED for further evaluation. Patient denies any lightheadedness, chest pain, palpitations, wheezing or syncope. No orthopnea or PND. Denies any sick contacts, fever or chills. Initial EKG with third-degree heart block at 34 bpm. ED provider called cardiology service, who recommended admission to ICU for close monitoring and pacemaker placement tomorrow. Admission Exam Per Admitting Provider General Appearance: WD/WN, no apparent distress, resting comfortably Head: normocephalic, atraumatic Eyes: normal inspection, PERRL, EOMI ENT: hearing grossly normal, pharynx normal (moist mucous membranes) Neck: supple, no JVD, no adenopathy Respiratory/Chest: lungs clear to auscultation. No wheezes, rales or rhonci. No respiratory distress or accessory muscle use Cardiovascular: bradycardic rate, no murmur, normal peripheral pulses, 1-2+ BLE pitting edema to ankles Abdomen/GI: normal bowel sounds, soft, non-tender to palpation Extremities/Musculoskelatal: normal inspection, no calf tenderness, normal capillary refill, no pedal edema Neurologic/Psych: alert, normal mood/affect, oriented x 3 Skin: normal color, warm/dry Principal Diagnosis Third degree heart block LBBB HTN Discharge Exam General- No acute distress Head- atraumatic Eyes- PERRL, EOMI, ENT- oropharynx clear Neck- supple, no JVD Lungs- clear to auscultation Heart- regular rhythm; no murmur Abdomen- normal bowel sounds, soft, nontender Extremities- no calf tenderness Neuro- alert, oriented x 3; PERRL, EOMI; no facial palsy; no dysarthria Skin- warm & dry Discharge Data Allergies Allergy/AdvReac Type Severity Reaction Status Date / Time mold Allergy Intermediate NASAL Verified 06/18/16 07:12 BURNING, LEFT EYE IRRITATION Penicillins Allergy Intermediate HIVES ON Verified 06/18/16 07:12 BODY levofloxacin Allergy Mild UNKNOWN Unverified 06/18/16 07:12 vancomycin Allergy Unknown UNKNOWN Verified 06/04/16 08:57 Dust Allergy Intermediate NASAL Uncoded 06/18/16 07:12 BURNING, LEFT EYE IRRITATION Consultations 08/19/18 12:17 ED Decision to Admit Stat 08/19/18 14:04 Consult Cardiology Routine 08/19/18 14:41 Consult Cardiology Routine Consult Case Management - Discharge Planning Routine Consult Automotive Parts Counterperson Routine Procedures Performed Operation Date: 08/20/18 07:25 Actual Procedures p Pacer with A/V Leads (Dual) - Romero Bose MD Operation Date: 08/20/18 07:30 <No data on this case meets the specified criteria> XR chest 2V routine HISTORY: 73 years-old Male EXACT TIME ORDERED Evaluate for pneumothorax and l status post placement of a left subclavian pacer COMPARISON: Chest radiographs August 19, 2017 TECHNIQUE: PA and lateral views of the chest FINDINGS: Cardiac silhouette is moderately enlarged. Status post placement of a left subclavian pacer with leads overlying the expected locations of the right atrium and right ventricle. No postprocedural pneumothorax identified. Mild right hemidiaphragmatic elevation. Small bilateral pleural effusions with subsegmental bibasilar opacities suggestive of atelectasis. Degenerative changes of the shoulders and spine. Nipple shadow projects over the right lung base. IMPRESSION: 1. Cardiomegaly. 2. Status post placement of a left subclavian pacer. No postprocedural pneumothorax. 3. Small bilateral pleural effusions. The above report was generated using voice recognition software. It may contain grammatical, syntax or spelling errors. Electronically signed by: Darrell Snyder M.D. 08/21/2018 6:57 AM Dictated: 08/21/18 0655 Transcribed: 08/21/18 0655 Ordered Studies 08/20/18 07:45 EP Lab Images for PACS ONCE Hospital Course (1) Third degree heart block: Initial EKG with third-degree heart block at 34 bpm S/P day # 2 pacemaker placement. Successful implantation of dual-chamber pacemaker by Dr. Bose today EKG with atrial-sensed ventricular paced rhythm No arrythmia on tele monitor Follow up [facility] Cardiology 3-4 weeks Clinically stable to discharge (2) Hypertension: BP improved this morning very anxious to leave Continue Nifedipine 90mg daily Lisinopril increased to 10mg daily Resume home lasix dose MWF as well Check BMP in 1 week to monitor electrolytes and renal function (3) Left bundle branch block: Chronic (4) Hypothyroidism: Continue levothyroxine (5) Anxiety: Xanax as needed (6) Diabetes: Recent Hba1c 6.2 on 08/04 BS in the hospital elevated Metformin increased to 1g BID by the mold breaker team care Continue monitor BP (7) Hyperlipidemia: Continue statin DVT Ppx: SCDs for now Code status: FULL Disposition Follow up with your primary care provider Dr. Inman on 08/27 @ 8:45 AM Follow up with your catrdiology on 09/04 @8:45 AM Total Time Total Time Spent Total Time Spent (In Minutes): 35 minutes Total Time Includes: Examination of the Patient, Discharge Planning, Medication Reconciliation, Communication With Other Providers and Other Discharge Plan Discharge Items Patient Disposition: Home - Home Health Services Reason For Visit: THIRD DEGREE HEART BLOCK Discharge Diagnosis: Third degree heart block, LBBB, HTN Condition: Good Discharge Goals: Decrease discomfort, Improve disease control, Improve function and Increase independence Activity: Resume your previous activity Activity Comment: As tolerated Non-emergency contact: Primary Care Provider and Online Advertising Manager Call non-emergency contact if: you have any medication questions, your temperature is above 101.5, your wound has increased redness and your wound has increased drainage Diet: Heart Healthy Addtl Provider Instructions: Follow up with your primary care provider Dr. Inman on 08/27 @ 8:45 AM Follow up with cardiology Dr. Brumfield on 09/04 @ 8:45 AM Monitor your blood pressure Fall precaution Continue physical and occupational therapy Check BMP in 1 week to monitor electrolytes and kidney function (Starting on Lisinopril) Don't drive until your doctor says it's OK. OK to shower tomorrow Do not lift the left elbow over the left shoulder for 1 month Do not lift no more than 10 lbs for 1 week Do not stretch your arm behind your back for as long as directed by your doctor. Keep incision area clean and dry Check your incision area for signs of infection (redness, swelling, drainage, or warmth). Before you receive any treatment, tell all healthcare providers (including your dentist) that you have a pacemaker. Keep your cell phone away from your pacemaker. Don't carry the phone in your shirt pocket overlying the pacemaker, even when it's turned off. Avoid strong magnets If you order for an MRI in the future, please inform that you have a pacemaker . Prescriptions: New lisinopril [Zestril] 10 mg Tablet 10 mg PO QAM 30 Days Qty: 30 RF: 0 metformin 1,000 mg tablet 1,000 mg PO BID Qty: 30 RF: 0 Continue alprazolam 0.5 mg tablet 0.5 mg PO BID PRN (Reason: Anxiety) RF: 0 atorvastatin 20 mg tablet 20 mg PO DAILY@1500 RF: 0 levothyroxine 75 mcg tablet 75 mcg PO DAILY RF: 0 amitriptyline 25 mg tablet 25 mg PO HS RF: 0 ranitidine HCl 75 mg Tablet 75 mg PO DAILY RF: 0 nifedipine 90 mg tablet extended release 24hr 90 mg PO DAILY RF: 0 omeprazole 20 mg Capsule,Delayed Release(Dr/Ec) 20 mg PO DAILY RF: 0 furosemide 20 mg Tablet 20 mg PO MOWEFR RF: 0 polyethylene glycol 3350 17 gram/dose Powder 17 g PO DAILY PRN (Reason: Constipation) RF: 0 timolol maleate [Timoptic] 0.5 % Drops 1 drp OPHTHALMIC (EYE) HS RF: 0 potassium chloride 10 mEq tablet,ER particles/crystals 10 meq PO BIDM RF: 0 bimatoprost 0.01 % drops 1 drp ophthalmic (eye) UD RF: 0 Discontinued metformin 500 mg tablet 500 mg PO BIDM RF: 0 Stand-Alone Forms: [facility] Discharge Orders: Discharge Order (Routine); Ordered 08/22/18 Ordered By: Roque Salazar Admission Data Admit Date/Time: 08/19/18 13:12 Attending Provider: Roque Salazar Admit Provider: Roque Salazar Primary Care Provider: Jean Marie Inman Other Providers: Roque Salazar ; Romero Bose ; Chon Cerna ; Rey Myers Service: Intensive Care Unit Other Interventions: Discharge Summary Assessment (RN) Last Done: 08/22/18 09:51 DC Date/Time DO NOT enter until pt leaves facility: 08/22/18 10:25
== END 2018-08-22 10:25 | disposition home health service (06) | DRG 244 ==
LOC: ED 11:44 → 1E 13:12

== ENCOUNTER 2025-04-10 19:34 | Observation (INO) ==
[2025-04-10] MEDS: SODIUM CHLORIDE 0.9% 500 ML IV STA (20:15)
[2025-04-10 20:40] LABS: Hematocrit (blood only) 41.0 % (42.0-52.0); Hemoglobin 13.7 g/dl (14.0-18.0); Immature Granulocytes # (auto) 0.11 K/uL (0.01-0.20); Immature Granulocytes % (auto) 1.0 %; Mean Corpuscular Hemoglobin 30.1 pg (25.0-34.0); Mean Corpuscular Volume 90.1 fL (80.0-100.0); Platelet Count 251 K/uL (130-400); RDW Standard Deviation 45.3 fL (36.4-46.3); Red Blood Count 4.55 M/uL (4.70-6.10); White Blood Count 10.71 K/ul (4.8-10.8)
[2025-04-10 20:57] LABS: Alanine Aminotransferase 20.0 U/L (7-52); Albumin Globulin Ratio 1.2 (0.9-2); Alkaline Phosphatase 134.0 U/L (34-104); Anion Gap 8.0 (3-11); Bilirubin,Total 0.3 mg/dl (0.2-1.0); Blood Urea Nitrogen 24.0 mg/dl (6-23); Calcium 9.0 mg/dl (8.6-10.3); Carbon Dioxide 26.0 mmol/L (21-32); Chloride 105.0 mmol/L (98-107); Creatinine Clr Calc Pharmacy 30.3 ml/min; Globulin 3.3 gm/dl (2.5-4.0); Glucose 274.0 mg/dl (70-99(Fasting)); Lipase 46.0 U/L (11-82); Potassium 4.0 mmol/L (3.5-5.1); Sodium 139.0 mmol/L (136-145); Total Protein 7.2 gm/dl (6.0-8.3)
[2025-04-10] MEDS: SODIUM CHLORIDE 0.9% 500 ML IV ONE (21:29)
[2025-04-10] MEDS: OXYMETAZOLINE 0.05% 30 ML BTL ONE (21:30)
[2025-04-10 21:48] LABS: Appearance Urine Clear (Clear); Bacteria Urine Automated None Seen (None Seen); Epithelial Cell Urine Auto 0-2 /hpf (0-2); Glucose Urine UA Trace (Negative); RBC Urine Automated 0-2 /hpf (0-2); WBC Urine Automated 0-5 /hpf (0-5)
--- NOTE | 2025-04-10 22:09 | Emergency Department Note ---
Impression & Plan Abdominal bloating, Constipation, Failure of outpatient treatment, Dehydration ED Provider Note NAME: ZOILA PLATA AGE: 80 SEX: M : 1945 ARRIVES VIA: Walk-In INFORMANT: [Patient] ED PROVIDER(S): [Hai Hawley MD] CHIEF COMPLAINT: GI assessment HISTORY OF PRESENT ILLNESS: The patient is an 80-year-old male who states that he has a history of constipation. He has not been able to have a bowel movement in 6 or so days. He has tried his lactulose, he has given himself multiple enemas. He feels quite bloated and his abdomen is distended. No vomiting, he does have a decreased appetite. There has been no fever, no cough or congestion. No urinary complaints. PMHx/PSHx/Social Hx: See Below PHYSICAL EXAM: GENERAL: Patient is in no acute distress. HEENT: No acute trauma, normocephalic atraumatic, mucous membranes moist, no nasal congestion. NECK: No stridor, no adenopathy, no meningismus, trachea is midline. LUNGS: Clear to auscultation bilaterally, no wheeze, no rhonchi, breath sounds equal. HEART: 2/6 systolic murmur, regular rate and rhythm. ABDOMEN: Soft, nontender, no peritonitis. Distended. EXTREMITIES: No cyanosis, full range of motion of all the joints without pain or difficulty. NEUROLOGIC: Oriented x 3, no acute motor or sensory deficits, no focal weakness. SKIN: No jaundice, no diaphoresis. Rectal: No stool in the rectal vault. DIFFERENTIAL DIAGNOSIS: Bowel obstruction, constipation, obstipation, dehydration, electrolyte imbalance, among others. EMERGENCY DEPARTMENT PROCEDURES: MEDICAL DECISION MAKING: There is no leukocytosis or worrisome anemia. There is a normal platelet count. No bandemia. There is evidence for some dehydration with an elevation in the creatinine above his typical baseline. No electrolyte abnormality in need of emergent correction. No concerning liver enzyme elevation. No evidence for pancreatitis. Urinalysis does not show infection. Abdominal x-ray does not show pneumonia or bowel obstruction. He is constipated. On my exam, there is some abdominal distention/bloating. Rectal exam did not show any stool within the rectal vault. The patient was not toxic or febrile. The patient received IV saline for hydration. He was given 1 L. He was given oral lactulose. He received Afrin at his request for nasal congestion. The patient presents with 6 or so days of no bowel movement. He is bloated. He has tried his typical meds at home as well as enemas at home without relief. He has failed outpatient management. At this point, I believe the patient requires a hospital stay for a bowel regimen/cleanout. He is not doing well outpatient, he actually has become a bit dehydrated with some rise in the creatinine, likely from his lack of appetite. The dehydration is probably further worsening his constipation. I did speak with the patient and case management, the on-call hospitalist was consulted. Prior/Outside records/notes reviewed: None ECG per my interpretation: Indication was abdominal pain. The ECG shows a ventricular pacemaker with a rate of 67. No obvious ST elevation, no PVCs. The QTc is 519. Continuous Cardiac Monitoring per my interpretation: An order was placed for continuous cardiac monitoring. The monitor shows a rate of 78 with ventricular pacing. Imaging/x-ray results per my interpretation: Abdominal series does not show pneumonia. There is no bowel obstruction. Constipation was seen. Chronic Medical/Social conditions affecting care: Advanced age. Care/Management discussed with: Case management, the on-call hospitalist. Level of care consideration(s): After review of the information above and other included data: --I believe the patient requires escalation of care to admission DISPOSITION: Admission Past Med/Surg History Problem List (Updated 04/10/25 @ 23:57 by Hai Hawley MD) Dehydration (Acute) Failure of outpatient treatment (Acute) Constipation (Acute) Abdominal bloating (Acute) Acute otitis media with effusion of right ear Rhinitis Cerumen impaction Impacted cerumen, right ear Encounter for pre-operative examination Diabetes Chronic sinusitis (Acute) Chronic rhinitis Allergic fungal sinusitis (AFS) Nasal polyposis Encounter for pre-operative examination Sinusitis with nasal polyps Mixed conductive and sensorineural hearing loss of right ear with restricted hearing of left ear Acute serous otitis media of right ear Third degree heart block s/p insertion of PPM 08/2018. Chronic maxillary sinusitis (Chronic) Hypothyroidism (Chronic) Patient has been having dysphagia. Thyroid ultrasound 01/29/2021 unremarkable. Anxiety (Chronic) Hyperlipidemia (Chronic) Hypertension (Chronic) Left bundle branch block (Chronic) f/u Dr. Rawls Medical History Family history of anesthesia complication My mother "always got nausea and vomiting afterwards" History of COVID-19 01/2022, preop pcr test, not hospitalized; congestion, "blocked ears">currently "blocked ears" and sore throat--seeing Dr. Nix 03/13/22 for him to "clean his sinus implants and cleo my ears" Arthritis neck Diverticulosis Diabetes mellitus, type 2 taking oral meds/diet Dysphagia H/o esophageal dilatation Colon cancer hx History of pacemaker (~08/2018) placed at [facility], follow with Dr Brumfield -- last checked spring 2021 Surgical History H/O hernia repair History of appendectomy History of back surgery [facility]; no stents History of colon resection ~20 years ago History of colonoscopy History of esophageal dilatation History of esophagogastroduodenoscopy (EGD) History of knee replacement right knee History of sinus surgery multiple Hx of cataract extraction rt. S/P Mohs surgery for basal cell carcinoma Status post biventricular cardiac pacemaker insertion 08/2018, [facility], last checked spring 2021, checked every 4 months (home monitor) twice/year f/u Radha Stanley Family History Father Coronary heart disease Other No family history of adverse response to anesthesia Social History Smoking Status: Never smoker Second Hand Exposure: No; Do You Dip or Chew Tobacco: No; Hx Alcohol Use: Yes ("don't drink any more") Alcohol type: beer Hx Substance Use: No Preferred Language: Sami Communication Ability: Effective Homicide Detective Required: No Beliefs That Will Affect Care: None Current Living Situation: Alone Feels Safe at Home: Yes Assistive Devices: Glasses Allergies Allergies Allergy/AdvReac Type Severity Reaction Status Date / Time mold Allergy Intermediate NASAL Verified 04/10/25 22:07 BURNING, LEFT EYE IRRITATION Penicillins Allergy Intermediate HIVES ON Verified 04/10/25 22:07 BODY levofloxacin Allergy Unknown UNKNOWN Verified 04/10/25 22:07 vancomycin Allergy Unknown UNKNOWN Verified 04/10/25 22:07 Home Meds Home Medications Medication Instructions Recorded Confirmed amitriptyline 25 mg tablet 25 mg PO HS 08/19/18 04/10/25 nifedipine 90 mg tablet,extended 90 mg PO QAM 08/19/18 04/10/25 release 24 hr polyethylene glycol 3350 17 17 g PO DAILY PRN Constipation 08/19/18 04/10/25 gram/dose oral powder metformin 500 mg tablet 500 mg PO QAM 03/12/22 04/10/25 atorvastatin 40 mg tablet 40 mg PO DAILY 01/23/23 04/10/25 carvedilol 12.5 mg tablet 12.5 mg PO BID 01/23/23 04/10/25 lactulose 10 gram/15 mL oral 15 ml PO TID PRN constipation 01/23/23 04/10/25 solution mecobalamin (vitamin B12) 1,000 1,000 mcg PO DAILY 01/23/23 04/10/25 mcg chewable tablet triamcinolone acetonide 0.1 % 1 applic topical BID PRN Dry Skin 01/23/23 04/10/25 topical cream furosemide 40 mg tablet 40 mg PO QAM 03/16/23 04/10/25 isosorbide mononitrate 60 mg 60 mg PO DAILY 04/10/25 04/10/25 tablet,extended release 24 hr levothyroxine 25 mcg tablet 25 mcg PO DAILY 04/10/25 04/10/25 losartan 25 mg tablet 25 mg PO DAILY 04/10/25 04/10/25 Previous Rx's Medication Instructions Recorded Saccharomyces boulardii 250 mg 250 mg PO BID #20 caps 03/16/23 capsule (Florastor) Results & Data (ED) Vital Signs Vital Signs - 24 hr 04/10/25 19:43 04/10/25 20:14 04/10/25 21:31 Temperature 36.5 C Temperature Source Temporal Artery Scan Pulse Rate 71 66 Pulse Rate [Apical] 78 Pulse Rhythm [Apical] Pulse Strength [Apical] Respiratory Rate 16 18 Respiratory Effort / Characteristics Respiratory Depth Respiratory Pattern Blood Pressure 143/69 H Blood Pressure [Right Arm] 151/66 H Blood Pressure Mean 93 Blood Pressure Mean [Right Arm] 94 Blood Pressure Position [Right Arm] Right Lateral Pulse Oximetry 96 96 Oxygen Delivery Method Room Air Room Air Sepsis Recent Fever Within 48 Hours No Sepsis New/Unexplained Change in Mental Status No Sepsis Action Taken by Nursing No Action Required 04/10/25 23:49 04/10/25 23:49 Temperature Temperature Source Pulse Rate Pulse Rate [Apical] 67 Pulse Rhythm [Apical] Regular Pulse Strength [Apical] Normal Respiratory Rate 17 Respiratory Effort / Characteristics Non-Labored Spontaneous Respiratory Depth Normal Respiratory Pattern Regular Blood Pressure Blood Pressure [Right Arm] 149/72 H Blood Pressure Mean Blood Pressure Mean [Right Arm] 97 Blood Pressure Position [Right Arm] Sitting Pulse Oximetry 97 Oxygen Delivery Method Room Air Room Air Sepsis Recent Fever Within 48 Hours Sepsis New/Unexplained Change in Mental Status Sepsis Action Taken by Residential Medications Current Medication List: was personally reviewed by me Laboratory Data Attestation: I reviewed the patient's lab results. 04/10/25 20:20 04/10/25 20:20 Lab Results 04/10/25 04/10/25 04/10/25 Range/Units 20:20 21:30 23:33 WBC 10.71 (4.8-10.8) K/ul RBC 4.55 L (4.70-6.10) M/uL Hgb 13.7 L (14.0-18.0) g/dl Hct 41.0 L (42.0-52.0) % MCV 90.1 (80.0-100.0) fL MCH 30.1 (25.0-34.0) pg MCHC 33.4 (32.0-36.0) g/dL RDW Std Deviation 45.3 (36.4-46.3) fL RDW Coeff of Wilmer 13.8 (11.5-14.5) % Plt Count 251 (130-400) K/uL MPV 10.9 (9.4-12.4) fL Immature Gran % (Auto) 1.0 % Neut % (Auto) 63.1 % Lymph % (Auto) 22.2 % [place] % (Auto) 10.0 % Eos % (Auto) 3.0 % Baso % (Auto) 0.7 % Neut # (Auto) 6.76 H (1.40-6.50) K/uL Lymph # (Auto) 2.38 (1.20-3.40) K/uL [place] # (Auto) 1.07 H (0.11-0.59) K/uL Eos # (Auto) 0.32 (0.00-0.50) K/uL Baso # (Auto) 0.07 (0.00-0.20) K/uL Immature Gran # (Auto) 0.11 (0.01-0.20) K/uL Sodium 139 (136-145) mmol/L Potassium 4.0 (3.5-5.1) mmol/L Chloride 105 (98-107) mmol/L Carbon Dioxide 26 (21-32) mmol/L Anion Gap 8 (3-11) BUN 24 H (6-23) mg/dl Creatinine 1.68 H (0.6-1.4) mg/dl Est Cr Clr Drug Dosing 30.3 ml/min eGFR 40.57 BUN/Creatinine Ratio 14.3 (10-20) Glucose 274 H (70-99(Fasting)) mg/dl POC Glucose 217 H (70-99) mg/dl Calcium 9.0 (8.6-10.3) mg/dl Total Bilirubin 0.3 (0.2-1.0) mg/dl AST 17 (13-39) U/L ALT 20 (7-52) U/L Alkaline Phosphatase 134 H (34-104) U/L Total Protein 7.2 (6.0-8.3) gm/dl Albumin 3.9 (3.4-5.0) gm/dl Globulin 3.3 (2.5-4.0) gm/dl Albumin/Globulin Ratio 1.2 (0.9-2) Lipase 46 (11-82) U/L Urine Color Yellow Urine Appearance Clear (Clear) Urine pH 6.5 (4.5-7.5) Ur Specific [place] 1.012 (1.000-1.030) Urine Protein Negative (Negative) Urine Glucose (UA) Trace H (Negative) Urine Ketones Negative (Negative) Urine Blood Negative (Negative) Urine Nitrite Negative (Negative) Urine Bilirubin Negative (Negative) Urine Urobilinogen Negative (Negative) Ur Leukocyte Esterase Trace H (Negative) Urine WBC (Auto) 0-5 (0-5) /hpf Urine RBC (Auto) 0-2 (0-2) /hpf U Hyaline Cast (Auto) 3-5 H (0-2) /lpf U Epithel Cells (Auto) 0-2 (0-2) /hpf Urine Bacteria (Auto) None Seen (None Seen) Urine Comment Administered Medications Insulin Aspart (Insulin Aspart Per Unit Charge) 0 units SC Q6 MONIK Stop: 05/11/25 00:00 Last Admin: 04/10/25 23:41 Dose: 3 units Documented By: GISELLA Co-signed By: CONY Discontinued Medications Sodium Chloride (Nss) 500 mls @ 999 mls/hr IV .Q31M STA Stop: 04/10/25 20:25 Last Infusion: 04/10/25 21:28 Dose: Infused Documented By: Admin: 04/10/25 20:15 Dose: 999 mls/hr Documented By: Sodium Chloride (Nss) 500 mls @ 999 mls/hr IV .Q31M ONE Stop: 04/10/25 21:50 Last Infusion: 04/10/25 23:02 Dose: Infused Documented By: Admin: 04/10/25 21:29 Dose: 999 mls/hr Documented By: SHELTON Lactulose (Lactulose Syrup 10 Gm/15 Ml Btl 960 Ml) 45 gm PO NOW ONE Stop: 04/10/25 21:40 Last Admin: 04/10/25 23:02 Dose: 45 gm Documented By: SHELTON Oxymetazoline HCl (Oxymetazoline 0.05% 30 Ml Btl) Confirm Administered Dose 150 sprays .ROUTE .STK-MED ONE Stop: 04/10/25 20:29 Last Admin: 04/10/25 21:30 Dose: 150 sprays Documented By: Discharge Plan Visit Data Chief Complaint: GI Assessment Stated Complaint: ABDOMINAL PAIN, BOWEL BLOCK ED Provider: Hai Hawley Discharge Problem: Abdominal bloating, Constipation, Failure of outpatient treatment, Dehydration Patient Disposition: Admitted As Inpatient Condition: Fair Discharge Instructions Interventions: ED Discharge Assessment Last Done: 04/10/25 23:49 Forms Stand Alone Forms: My [facility] [employer] Prescriptions Prescriptions: No Action atorvastatin 40 mg tablet 40 mg PO DAILY lactulose 10 gram/15 mL solution 15 ml PO TID PRN (Reason: constipation) carvedilol 12.5 mg tablet 12.5 mg PO BID Rx Instructions: must administer with a meal/food mecobalamin (vitamin B12) 1,000 mcg tablet,chewable 1,000 mcg PO DAILY triamcinolone acetonide 0.1 % cream 1 applic topical BID PRN (Reason: Dry Skin) amitriptyline 25 mg tablet 25 mg PO HS nifedipine 90 mg tablet extended release 24hr 90 mg PO QAM polyethylene glycol 3350 17 gram/dose Powder 17 g PO DAILY PRN (Reason: Constipation) furosemide 40 mg tablet 40 mg PO QAM Saccharomyces boulardii [Florastor] 250 mg capsule 250 mg PO BID Qty: 20 0RF Rx Instructions: swallow whole metformin 500 mg Tablet 500 mg PO QAM levothyroxine 25 mcg tablet 25 mcg PO DAILY isosorbide mononitrate 60 mg tablet extended release 24 hr 60 mg PO DAILY losartan 25 mg tablet 25 mg PO DAILY Referrals Referrals: Chester Joshua M.D. [Primary Care Provider] - Discharge Problem: Constipation Qualifiers: Constipation type: unspecified constipation type Qualified Code(s): K59.00 - Constipation, unspecified
--- NOTE | 2025-04-10 22:46 | History & Physical Report ---
Date of Service April 10, 2025 Assessment & Plan (1) Constipation: (2) Abdominal bloating: (3) Chronic cough: (4) ESTEBAN (dyspnea on exertion): Plan #Constipation/Moderate stool burden - pt has not had a BM in 6 days despite lactulose, 15 g, PO, TID and 4 self- administered enemas - KUB: Moderate quantity of desiccated stool over the large bowel and over the rectal vault suggests constipation. The bowel gas pattern is nonobstructive. - "Bowel prep" started: 1) Dulcolax, 5 mg 2) Miralax powder packet, 238 g, PO - continue lactulose, 10 g, PO, TID - IV fluids --> LR, 80 mL/hr, total 2000 mL #Chronic cough/Dyspnea - CXR showed cardiomegaly along w/ left-sided basilar atelectasis - pt w/ reported ESTEBAN, chronic cough jose guadalupe w/ exertion, use of compression stockings to manage pedal edema - will order Echocardiogram (last Echo in November, thru [facility]: 55-59% EF, Grade I diastolic dysfunction Code status: Full code VTE Prophylaxis: Heparin, 5000 U, subQ, BID Disposition: Med-Surg FENGI: T2DM Carb-consistent, clear liquid diet; LR, 80 mL/hr, 2000 mL total History of Present Illness Chief Complaint: constipation Primary Care Provider: Chester Joshua Patient has been constipated for 6 days now (no BM for 6 days now) despite having given himself 4 enemas and continuing to take the lactulose daily. P atient feels bloated, distended, no N/V, denies pain, lots of gas. Patient typically has only 1 BM every 3-4 days. Patient endorses good fiber intake, and plenty of fluid intake, but is unable to put a number on either one of these. Patient denies any overflow diarrhea with this constipation. Patient notes some problems even walking to get his mail these past few weeks due to his low BP. Patient feels he needs to stop on the way to the mailbox to catch his breath. Allergies Allergy/AdvReac Type Severity Reaction Status Date / Time mold Allergy Intermediate NASAL Verified 04/10/25 22:07 BURNING, LEFT EYE IRRITATION Penicillins Allergy Intermediate HIVES ON Verified 04/10/25 22:07 BODY levofloxacin Allergy Unknown UNKNOWN Verified 04/10/25 22:07 vancomycin Allergy Unknown UNKNOWN Verified 04/10/25 22:07 Home Medications Medication Instructions Recorded Confirmed Type amitriptyline 25 mg tablet 25 mg PO HS 08/19/18 04/10/25 History nifedipine 90 mg tablet,extended 90 mg PO QAM 08/19/18 04/10/25 History release 24 hr polyethylene glycol 3350 17 17 g PO DAILY PRN Constipation 08/19/18 04/10/25 History gram/dose oral powder metformin 500 mg tablet 500 mg PO QAM 03/12/22 04/10/25 History atorvastatin 40 mg tablet 40 mg PO DAILY 01/23/23 04/10/25 History carvedilol 12.5 mg tablet 12.5 mg PO BID 01/23/23 04/10/25 History lactulose 10 gram/15 mL oral 15 ml PO TID PRN constipation 01/23/23 04/10/25 History solution mecobalamin (vitamin B12) 1,000 1,000 mcg PO DAILY 01/23/23 04/10/25 History mcg chewable tablet triamcinolone acetonide 0.1 % 1 applic topical BID PRN Dry Skin 01/23/23 04/10/25 History topical cream Saccharomyces boulardii 250 mg 250 mg PO BID #20 caps 03/16/23 04/10/25 Rx capsule (Florastor) furosemide 40 mg tablet 40 mg PO QAM 03/16/23 04/10/25 History isosorbide mononitrate 60 mg 60 mg PO DAILY 04/10/25 04/10/25 History tablet,extended release 24 hr levothyroxine 25 mcg tablet 25 mcg PO DAILY 04/10/25 04/10/25 History losartan 25 mg tablet 25 mg PO DAILY 04/10/25 04/10/25 History Past Med/Surg History Problem List (Updated 04/11/25 @ 02:44 by Estuardo Londono MD) ESTEBAN (dyspnea on exertion) Chronic cough Dehydration (Acute) Failure of outpatient treatment (Acute) Constipation (Acute) Abdominal bloating (Acute) Acute otitis media with effusion of right ear Rhinitis Cerumen impaction Impacted cerumen, right ear Encounter for pre-operative examination Diabetes Chronic sinusitis (Acute) Chronic rhinitis Allergic fungal sinusitis (AFS) Nasal polyposis Encounter for pre-operative examination Sinusitis with nasal polyps Mixed conductive and sensorineural hearing loss of right ear with restricted hearing of left ear Acute serous otitis media of right ear Third degree heart block s/p insertion of PPM 08/2018. Chronic maxillary sinusitis (Chronic) Hypothyroidism (Chronic) Patient has been having dysphagia. Thyroid ultrasound 01/29/2021 unremarkable. Anxiety (Chronic) Hyperlipidemia (Chronic) Hypertension (Chronic) Left bundle branch block (Chronic) f/u Dr. Rawls Medical History Family history of anesthesia complication My mother "always got nausea and vomiting afterwards" History of COVID-19 01/2022, preop pcr test, not hospitalized; congestion, "blocked ears">currently "blocked ears" and sore throat--seeing Dr. Nix 03/13/22 for him to "clean his sinus implants and cleo my ears" Arthritis neck Diverticulosis Diabetes mellitus, type 2 taking oral meds/diet Dysphagia H/o esophageal dilatation Colon cancer hx History of pacemaker (~08/2018) placed at [facility], follow with Dr Brumfield -- last checked spring 2021 Surgical History H/O hernia repair History of appendectomy History of back surgery History of cardiac cath "years ago", [facility]; no stents History of colon resection ~20 years ago History of colonoscopy History of esophageal dilatation History of esophagogastroduodenoscopy (EGD) History of knee replacement right knee History of sinus surgery multiple Hx of cataract extraction rt. S/P Mohs surgery for basal cell carcinoma Status post biventricular cardiac pacemaker insertion 08/2018, [facility] [employer], last checked spring 2021, checked every 4 months (home monitor) twice/year f/u Radha Stanley Family History Father Coronary heart disease Other No family history of adverse response to anesthesia Social History Smoking Status: Never smoker Second Hand Exposure: No; Do You Dip or Chew Tobacco: No; Hx Alcohol Use: No Hx Substance Use: No Preferred Language: German Communication Ability: Effective Middle School Counselor Required: No Beliefs That Will Affect Care: None Current Living Situation: Alone Other Information That Helps Us Care for You: No Feels Safe at Home: Yes Safety Concerns: Feels Safe At This Time Assistive Devices: Glasses Review of Systems Review of Systems: All systems reviewed & are unremarkable except as noted in HPI & below Physical Exam Constitutional: WD/WN, vitals as above Respiratory: normal respiratory effort and + cough; no respiratory distress Auscultation: + crackles (left base of lungs posteriorly) Cardiovascular: RRR, no murmur, no edema Extremities: no calf tenderness and no pedal edema Gastrointestinal (Abdomen): Inspection/Auscultation: + abdomen distended and normal bowel sounds Percussion/Palpation: abdomen nontender and abdomen not rigid Psychiatric: A+Ox3, euthymic affect Results & Data Results & Data Vital Signs (Past 12 Hours) Vital Signs Temp Pulse Pulse Resp BP BP Pulse Ox 04/10/25 21:31 78 18 151/66 H 96 04/10/25 20:14 66 04/10/25 19:43 36.5 C 71 16 143/69 H 96 O2 Del Method 04/10/25 21:31 Room Air 04/10/25 20:14 04/10/25 19:43 Room Air Supervising Physician Co-Signing Physician Notes Attending addendum: I have physically seen this patient, have supervised the medical residents a ctivities, and agree with the H&P unless as otherwise noted. Assessment and Plan: Constipation/abdominal distention/failure outpatient treatment- Patient reports not having a bowel movement in 6 days despite use of lactulose 15 g 3 times daily, and 4 self-administered enemas. KUB shows moderate quantity of desiccated stool of the large bowel and over the rectal vault suggesting constipation. Bowel prep with Dulcolax, MiraLAX, and lactulose was noted LR at 80 mL/h x 2 L Chronic cough/dyspnea/hypertension/CAD-- Chest x-ray with cardiomegaly and left-sided basilar atelectasis Patient with dyspnea on exertion, chronic cough with exertion Continue carvedilol, furosemide, isosorbide mononitrate, losartan, nifedipine Order echocardiogram Last echo 12/09 with [facility] shows ejection fraction 55-59% and grade 1 diastolic dysfunction Hyperlipidemia- Continue atorvastatin Diabetes mellitus- Holding metformin Placed Accu-Cheks with NovoLog SSI Acute renal insufficiency superimposed on CKD- Creatinine 1.68 on admission with baseline 0.45 Follow with laboratories serially in the a.m. after fluid resuscitation Hypothyroidism- Continue levothyroxine Anxiety/insomnia- Continue amitriptyline at bedtime (1) Constipation Constipation type: unspecified constipation type Qualified Code(s): K59.00 - Constipation, unspecified
[2025-04-10] MEDS: LACTULOSE SYRUP 10 GM/15 ML BTL 960 ML PO ONE (23:02)
[2025-04-10] MEDS ORDERED: ACETAMINOPHEN 325 MG TAB PO PRN (23:10)
[2025-04-10] MEDS ORDERED: MELATONIN 3 MG TAB PO PRN (23:10)
[2025-04-10] MEDS ORDERED: GLUCOSE 40% GEL 15 GM TUBE PO PRN (23:25)
[2025-04-10] MEDS ORDERED: CARBOHYDRATES FOR HYPOGLYCEMIA PO PRN (23:25)
[2025-04-10] MEDS ORDERED: GLUCOSE 10 TAB/TUBE PO PRN (23:25)
[2025-04-10] MEDS ORDERED: DEXTROSE 50% 50 ML SYRINGE IV PRN (23:25)
[2025-04-10] MEDS ORDERED: GLUCAGON FOR INJ 1 MG VIAL SQ PRN (23:25)
[2025-04-10] MEDS: INSULIN ASPART PER UNIT CHARGE SC SCH (23:41)
--- NOTE | 2025-04-11 00:01 | XRay Report ---
Exam(s): XR ACUTE ABDOMEN SERIES W/ CXR EXAM: XR Abdomen, 2 Views and XR Chest, 1 View CLINICAL HISTORY: Bloated. TECHNIQUE: Frontal view of the chest, frontal view of the abdomen/pelvis and upright or decubitus view of the abdomen. COMPARISON: No relevant prior studies available. FINDINGS: Lungs: The lungs are hyperinflated likely representing emphysema. No consolidation. Left basilar atelectasis. Pleural space: Unremarkable. No pneumothorax. Heart: Cardiomegaly. Mediastinum: Unremarkable. Normal mediastinal contour. Intraperitoneal space: No free air. Gastrointestinal tract: Nonspecific bowel gas pattern. No dilation. Bones/joints: There are degenerative changes of the spine. No acute fracture. Tubes, lines and devices: There is a left cardiac pacer. IMPRESSION: 1. Cardiomegaly. 2. Nonspecific bowel gas pattern. Electronically signed by: Abigail Hammond MD 04/11/25 00:00 AM
[2025-04-11] MEDS ORDERED: LACTULOSE SYRUP 20 GM/30 ML UDC PO PRN (00:09)
[2025-04-11] MEDS: POLYETHYLENE (MIRALAX) 17 GM PACK PO ONE (00:58)
[2025-04-11] MEDS: LACTATED RINGER'S 1,000 ML IV SCH (00:59)
--- NOTE | 2025-04-11 03:48 | Billing Data ---
Date of Service April 11, 2025 Coding Level of Care Code 08145 INT INP/OBS CARE
[2025-04-11] MEDS: LEVOTHYROXINE SODIUM 25 MCG TABLET PO SCH (05:51)
[2025-04-11 06:57] LABS: Hematocrit (blood only) 39.3 % (42.0-52.0); Hemoglobin 13.1 g/dl (14.0-18.0); Mean Corpuscular Hemoglobin 30.1 pg (25.0-34.0); Mean Corpuscular Volume 90.3 fL (80.0-100.0); Platelet Count 233 K/uL (130-400); RDW Standard Deviation 45.3 fL (36.4-46.3); Red Blood Count 4.35 M/uL (4.70-6.10); White Blood Count 10.93 K/ul (4.8-10.8)
[2025-04-11 07:04] VITALS: TEMP 98.2
[2025-04-11 07:49] LABS: Anion Gap 7 (3-11); Calcium 8.9 mg/dl (8.6-10.3); Carbon Dioxide 27 mmol/L (21-32); Chloride 108 mmol/L (98-107); Sodium 142 mmol/L (136-145)
[2025-04-11 07:52] LABS: Blood Urea Nitrogen 18 mg/dl (6-23); Creatinine Clr Calc Pharmacy 42.9 ml/min
[2025-04-11 08:02] LABS: Thyroid Stimulating Hormone 1.190 uIu/ml (0.300-4.500)
--- NOTE | 2025-04-11 08:31 | Hospitalist Progress Note ---
Date of Service April 11, 2025 Assessment & Plan (1) Constipation: (2) Abdominal bloating: (3) Chronic cough: (4) ESTEBAN (dyspnea on exertion): Plan This patient is an 80-year-old male who presented on 04/10 for refractory constipation despite multiple treatments. Patient has not had a BM 6 days [employer] despite lactulose 15 g p.o. 3 times daily, and for self-administered enemas. #Constipation/Moderate stool burden KUB: Moderate quantity of desiccated stool over the large bowel and over the rectal vault suggests constipation. The bowel gas pattern is nonobstructive. "Bowel prep" started: Dulcolax 5 mg x 1 MiraLAX powder 238 g x 1 Continue lactulose 10 g p.o. TID PRN IV fluids --> LR, 80 mL/hr, total 2000 mL #Chronic cough/Dyspnea CXR showed cardiomegaly along w/ left-sided basilar atelectasis Pt w/ reported ESTEBAN, chronic cough jose guadalupe w/ exertion, use of compression stockings to manage pedal edema Last Echo in November, thru [facility]: 55-59% EF, Grade I diastolic dysfunction Repeat echocardiogram ordered, pending #Diabetes No A1c on file Lantus 8 u BID while inpatient SSI; with target BSG range 100-140mg/dL, CF 30, carb ratio 10 T2DM diet BSG ACHS Adjust regimen as needed VTE Prophylaxis: Heparin, 5000u SQ BID Disposition: Continued stay on Med-Surg FENGI: T2DM Carb-consistent, clear liquid diet; LR, 80 mL/hr, 2000 mL total Admission and Anticipated Discharge Date Admission Date: April 10, 2025 Subjective Mr. Quintero ROS: Patient endorses Patient denies Review of Systems Review of Systems: See HPI above Results & Data Results & Data Vital Signs (Past 12 Hours) Vital Signs Temp Pulse Resp BP Pulse Ox O2 Del Method 04/11/25 07:02 36.8 C 61 18 177/73 H 99 Room Air 04/11/25 00:10 36.6 C 16 172/80 H 97 Room Air 04/10/25 23:49 67 17 149/72 H 97 Room Air 04/10/25 23:49 Room Air 04/10/25 21:31 78 18 151/66 H 96 Room Air PG Care Time/CCT Total # of Minutes Spent Total Time Spent with Patient: Total time spent is greater than 50% in coordination of care (as documented) at patient's floor/unit and/or counseling patient: C[place] [address] SUB INP/OBS CARE 2/35MIN Patient Type Established Medical Decision Making Moderate Complexity Diagnoses Constipation K59.00 Constipation type: unspecified constipation type Abdominal bloating R14.0 Chronic cough R05.3 ESTEBAN (dyspnea on exertion) R06.09 (1) Constipation Constipation type: unspecified constipation type Qualified Code(s): K59.00 - Constipation, unspecified
[2025-04-11] MEDS: NIFEdipine EXTENDED REL 30 MG TABCR PO SCH (08:51)
[2025-04-11] MEDS: SACCHAROMYCES BOULARDII 250 MG CAP PO SCH (08:51)
[2025-04-11] MEDS: FUROSEMIDE 40 MG TAB PO SCH (08:52)
[2025-04-11] MEDS: CYANOCOBALAMIN (B-12) 500 MCG TABLET PO SCH (08:52)
[2025-04-11] MEDS: ISOSORBIDE MONO EXTENDED REL 60 MG TABCR PO SCH (08:52)
[2025-04-11] MEDS: LOSARTAN POTASSIUM 25 MG TAB PO SCH (08:52)
[2025-04-11] MEDS: ATORVASTATIN 40 MG TAB PO SCH (08:52)
[2025-04-11] MEDS: HEPARIN SOD 5,000 UNIT/0.5 ML VIAL SQ SCH (09:00)
[2025-04-11] MEDS: LANTUS PER UNIT CHARGE SQ SCH (10:14)
[2025-04-11 10:24] VITALS: BP 122/56; PULSE 72; RESP 16; O2SAT 96
[2025-04-11 10:47] LABS: Hemoglobin A1C 8.8 % (4.5-5.6)
--- NOTE | 2025-04-11 11:24 | Discharge Summary ---
Discharge Summary Date of Service April 11, 2025 Principal Dx & Hospital Course #1 = Principal Diagnosis (1) Constipation: (2) Abdominal bloating: (3) Chronic cough: (4) ESTEBAN (dyspnea on exertion): (5) Black stool: (6) Anemia: Plan This patient is an 80-year-old male who presented on 04/10 for refractory constipation despite multiple treatments. 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 3 times daily, and for self-administered enemas. Patient reports he was able to have "7 bowel movements" in the hospital after being given initial bowel prep. He reports full resolution of symptoms at time of discharge. Day of discharge 04/11: VSS at time of discharge. Mr. Quintero is glad to report that he had 7 bowel movements last night. He reports that the bowel movements were liquidy in consistency, and dark brown/black in color. He denies any bright red blood in his bowel movements. Patient denies any stomach pain at this time. He reports he does have a history of diabetes, and has been on metformin for years, but does not normally take insulin. Overall, he has had a poor diet over the past week, and has mainly been eating "hamburgers and spaghetti" at home this past week. He reports he is amenable to trying a regular diet this morning ROS: Patient endorses chills at night, nasal congestion, chronic cough, and constipation (resolved). Patient denies fever, night sweats, chest pain, SOB, abdominal pain, change in urinary habits, BRB in the urine or stool, dysuria, or numbness or tingling going down the legs. Addendum: Reassessed patient at bedside, and he reports he has been eating and drinking well. Eager to return home today if possible #Constipation | abdominal bloating | moderate stool burden (resolved) KUB: Moderate quantity of desiccated stool over the large bowel and over the rectal vault suggests constipation. The bowel gas pattern is nonobstructive. "Bowel prep" started: Dulcolax 5 mg x 1 MiraLAX powder 238 g x 1 Lactulose 10 g p.o. TID PRN IV fluids --> LR, 80 mL/hr, total 2000 mL Multiple BMs in the hospital on 04/11 Discharged home on MiraLAX 17 g daily #Black stool | anemia Patient notes that his diarrhea was "black/liquidy" after finally having bowel movement on 04/11 No PMHx of peptic ulcers or GI bleeds Did not take Pepto-Bismol prior to hospitalization; not on iron supplements His last colonoscopy was 5 years ago; patient reports that it was unremarkable, and he reports he would not want any additional screenings at this time Hgb 13.1 at time of discharge Patient advised to monitor for resolution once bowel movements normalize Recommend follow-up H&H outpatient #Chronic cough | Dyspnea CXR showed cardiomegaly along w/ left-sided basilar atelectasis Pt w/ reported ESTEBAN, chronic cough jose guadalupe w/ exertion, use of compression stockings to manage pedal edema Last Echo in November, thru [facility]: 55-59% EF, Grade I diastolic dysfunction Echocardiogram on 04/11/2025 revealed LVEF at 55 to 60%; grade 1 diastolic dysfunction Continue furosemide on discharge #HTN BP 122/56 on discharge Continue home antihypertensives (carvedilol, isosorbide mononitrate, losartan, nifedipine) #Diabetes No A1c on file on arrival AM A1c 8.8% on 04/11/2025 Lantus 8 u BID while inpatient SSI; with target BSG range 100-140mg/dL, CF 30, carb ratio 10 T2DM diet BSG ACHS Adjust regimen as needed Restart metformin upon discharge Recommend adjustments to patient's diabetic medications outpatient Disposition: Discharge home Notes For Next Care Provider Patient hospitalized from 04/10 - 04/11 due to constipation refractory to home remedies. Resolved in the hospital after being given GoLytely and Dulcolax. Recommend adjustments to patient's diabetic regimen as elevated A1c at 8.8% on discharge. Also recommend obtaining an H&H prior to transitional care appointment, as patient noted that his stool looked "black" when he was finally able to have a bowel movement. Hgb 13.1 on discharge. Admission HPI Per Admitting Provider Patient has been constipated for 6 days now (no BM for 6 days now) despite having given himself 4 enemas and continuing to take the lactulose daily. Patient feels bloated, distended, no N/V, denies pain, lots of gas. Patient typically has only 1 BM every 3-4 days. Patient endorses good fiber intake, and plenty of fluid intake, but is unable to put a number on either one of these. Patient denies any overflow diarrhea with this constipation. Patient notes some problems even walking to get his mail these past few weeks due to his low BP. Patient feels he needs to stop on the way to the mailbox to catch his breath. Admission Exam Per Admitting Provider Constitutional: WD/WN, vitals as above Respiratory: normal respiratory effort and + cough; no respiratory distress Auscultation: + crackles (left base of lungs posteriorly) Cardiovascular: RRR, no murmur, no edema Extremities: no calf tenderness and no pedal edema Gastrointestinal (Abdomen): Inspection/Auscultation: + abdomen distended and normal bowel sounds Percussion/Palpation: abdomen nontender and abdomen not rigid Psychiatric: A+Ox3, euthymic affect Discharge Exam General: no acute distress; non-toxic appearing; well-nourished; cooperative; SpO2 96% on RA HEENT: normocephalic, atraumatic; no scleral icterus; PERRLA w/ EOMs intact; vision and hearing intact Neck: supple; no lymphadenopathy; trachea midline Skin: warm, dry without signs of tenting; no cyanosis; no rashes, bruising, lesions, or erythema noted CV: chest wall NTP; RRR; S1/S2 normal; no murmurs/rubs/gallops; pulses intact and symmetric at radial, DP, and PT Lungs: no acute respiratory distress; symmetrical chest wall expansion; clear breath sounds across all lung mullins w/o adventitious sounds; no wheezing ABD: Soft, NTP in all 4 quadrants; no rashes or bruising appreciated on the abdomen or flanks bilaterally; BS present; no rebound/guarding; no distention MSK: no tics or fasciculations; no edema noted in the LEs b/l, nonerythematous Neuro: A&Ox3; normal mood and affect; fluent speech; no focal deficits; sensation intact and symmetric in the lower extremities bilaterally assessed via light touch Discharge Plan Discharge Items Patient Disposition: Home - Self-Care Reason For Visit: CONSTIPATION Discharge Diagnosis: Constipation Condition on Discharge: Fair Activity: Resume your previous activity Non-emergency contact: Primary Care Provider Call non-emergency contact if: you have any medication questions, your symptoms worsen, your pain is not controlled and you have a fever Follow-up/Referrals: Chester Joshua M.D. [Primary Care Provider] - Diet: Carb Consistent or DM2 Addtl Attending Provider Instructions: You were hospitalized from 04/10 - 04/11 for constipation that did not respond to initial treatments. While in the hospital, you received a bowel regimen including Dulcolax, lactulose, and GoLytely prep (238 g of MiraLAX), which then led to resolution of your symptoms. Upon discharge, we will send a new prescription to your pharmacy for bowel leni men: - Dulcolax 5 mg daily as needed for constipation You may also continue to take MiraLAX powder 17 g daily every morning as needed for constipation at home. Your A1c was elevated at 8.8%, indicating that your current diabetic regimen might not be sufficient for your underlying diabetes. We have attached several pamphlets to your discharge paperwork to help with managing your diabetes at [facility]. Please plan to follow-up with your PCP in the next 7 to 10 days for a transitional care appointment. Prior to this visit, we recommend that you have a blood test called a CBC to assess your hemoglobin levels, as your hemoglobin level was slightly low, but stable at time of discharge. If you develop any new or worsening symptoms, such as severe abdominal pain, nausea, vomiting, fever, intractable constipation or diarrhea, blood in your stool, or trouble breathing, please return to the Emergency Department immediately. It was a pleasure taking care of you. Please reach out with any questions or concerns. Sincerely, The Hospital medicine team at [facility] Pending Studies at Discharge: No Stand-Alone Forms: My [facility] Medications and DC Order Prescriptions: New bisacodyl [Dulcolax (bisacodyl)] 5 mg tablet,delayed release (DR/EC) 5 mg PO DAILY PRN (Reason: constipation) Qty: 7 0RF Rx Instructions: Take 1 tablet by mouth daily as needed for constipation Continued atorvastatin 40 mg tablet 40 mg PO DAILY lactulose 10 gram/15 mL solution 15 ml PO TID PRN (Reason: constipation) carvedilol 12.5 mg tablet 12.5 mg PO BID Rx Instructions: must administer with a meal/food mecobalamin (vitamin B12) 1,000 mcg tablet,chewable 1,000 mcg PO DAILY triamcinolone acetonide 0.1 % cream 1 applic topical BID PRN (Reason: Dry Skin) amitriptyline 25 mg tablet 25 mg PO HS nifedipine 90 mg tablet extended release 24hr 90 mg PO QAM polyethylene glycol 3350 17 gram/dose Powder 17 g PO DAILY PRN (Reason: Constipation) furosemide 40 mg tablet 40 mg PO QAM Saccharomyces boulardii [Florastor] 250 mg capsule 250 mg PO BID Qty: 20 0RF Rx Instructions: swallow whole metformin 500 mg Tablet 500 mg PO QAM levothyroxine 25 mcg tablet 25 mcg PO DAILY isosorbide mononitrate 60 mg tablet extended release 24 hr 60 mg PO DAILY losartan 25 mg tablet 25 mg PO DAILY Discharge Orders: Discharge Order (Routine); Ordered 04/11/25 Ordered By: Maicol Rollins/Other Patient Handouts: High Blood Sugar (Hyperglycemia), Managing Type 2 Diabetes Admission Data Admit Date/Time: 04/10/25 23:11 Attending Provider: Gregorio Engle Admit Provider: Estuardo Londono Primary Care Provider: Chester Joshua Other Providers: Carlos Caceres Hospital Stay Data Consultations 04/10/25 21:49 ED Decision to Admit Stat Pending Results Patient Have Any Pending Studies at Discharge: No Discharge Instructions Given to Patient (Per Discharging Provider) You were hospitalized from 04/10 - 04/11 for constipation that did not respond to initial treatments. While in the hospital, you received a bowel regimen including Dulcolax, lactulose, and GoLytely prep (238 g of MiraLAX), which then led to resolution of your symptoms. Upon discharge, we will send a new prescription to your pharmacy for bowel regimen: - Dulcolax 5 mg daily as needed for constipation You may also continue to take MiraLAX powder 17 g daily every morning as needed for constipation at home. Your A1c was elevated at 8.8%, indicating that your current diabetic regimen might not be sufficient for your underlying diabetes. We have attached several pamphlets to your discharge paperwork to help with managing your diabetes at home. Please plan to follow-up with your PCP in the next 7 to 10 days for a transitional care appointment. Prior to this visit, we recommend that you have a blood test called a CBC to assess your hemoglobin levels, as your hemoglobin level was slightly low, but stable at time of discharge. If you develop any new or worsening symptoms, such as severe abdominal pain, nausea, vomiting, fever, intractable constipation or diarrhea, blood in your stool, or trouble breathing, please return to the Emergency Department immediately. It was a pleasure taking care of you. Please reach out with any questions or concerns. Sincerely, The Hospital medicine team at [facility] Total Time Total Time Spent Total Time Spent (In Minutes): 25 [place] [address] IN/OBS DISCH 30 MIN/LESS Patient Type Established History Detailed Exam Detailed Medical Decision Making Low Complexity Diagnoses Constipation K59.00 Constipation type: unspecified constipation type Abdominal bloating R14.0 Chronic cough R05.3 ESTEBAN (dyspnea on exertion) R06.09 Black stool K92.1 Anemia D64.9
[2025-04-11] MEDS: COUGH DROP (SUGAR FREE) LOZ 24 LOZ/1 BOX BUCCAL PRN (11:28)
--- NOTE | 2025-04-11 17:35 | Communication Note ---
Addendum at 1330: Concerns raised by both myself as well as nursing staff regarding patient transport home. Patient would like to drive himself home upon discharge. He reports he has no family in the area that can pick him up as most of them live in [place], and does not have friends available to drive him home today. Patient reports he did not sleep at all last night, and is feeling very tired/groggy this morning. Normally, he has difficulty with sleeping, but reports he usually gets "2 to 3 hours" per night. When offered transport home set up by the hospital, the patient declined because his truck is currently at the hospital and he has no one available to help him pick it up. Suggested that the patient try to sleep this afternoon, and see how he is feeling around 4 PM. Patient agreeable. Addendum at 1700: Reassessed patient at bedside. Patient reports he was unable to sleep this afternoon, but does feel ready to go home at this time. Patient was offered coffee prior to discharge, but declined due to concerns that he would need to pull off on the side of the road to use the bathroom. Again, strongly encouraged transport home set up at hospital or staying in the hospital for an additional night. Patient declined both. Discussed case with Dr. Engle as well as nursing staff. Patient verbalizes that he feels safe to drive home at this time. He is stable from a medical standpoint. He further reports that he understands the risks of driving while fatigued, and reports he is willing to take on those risks. Date of Service: April 11, 2025
[2025-04-11] MEDS ORDERED: AMITRIPTYLINE HCL 25 MG TAB PO SCH (21:00)
--- NOTE | 2025-04-14 05:26 | Electrocardiogram Report ---
Test Reason : Blood Pressure : */* mmHG Vent. Rate : 67 BPM Atrial Rate : 67 BPM P-R Int : 208 ms QRS Dur : 188 ms QT Int : 492 ms P-R-T Axes : 45 -77 98 degrees QTcB Int : 519 ms Atrial-sensed ventricular-paced rhythm Abnormal ECG When compared with ECG of 17-Feb-2025 15:32, Vent. rate has increased by 7 bpm Confirmed by Wilian Granados ([id number]) on 04/14/2025 5:26:28 AM Referred By: REFERRED SELF Confirmed By: Wilian Granados
== END 2025-04-11 18:05 | disposition home or self-care (01) ==
LOC: 3N 19:34 → ED 19:34 → SUATTDRO 23:11 → 3N 23:49